=== PATIENT | male | born 1970 | race Caucasian/White ===

== ENCOUNTER 2020-12-05 10:38 | Emergency (ER) | payer BC, SELFPAY ==
--- NOTE | ~2020-12-05 | XR_ITS ---
EXAMINATION: XR KNEE, RIGHT CLINICAL INFORMATION: Right knee pain and swelling COMPARISON: None TECHNIQUE: Four views of the right knee. XR/XR knee RT 4V FINDINGS/IMPRESSION: No acute fracture or dislocation. Joint spaces and articular surfaces are maintained. Small marginal osteophytes along the patella. Moderate joint effusion.
--- NOTE | ~2020-12-05 | US_ITS ---
EXAMINATION: US VENOUS ULTRASOUND WITH DOPPLER LOWER EXTREMITY, RIGHT CLINICAL INFORMATION: Hernandez's cyst COMPARISON: None TECHNIQUE: Ultrasound of the deep veins is performed from the hip to the calf with compression sonography and color and pulse Doppler assessment. Spectral analysis with color-flow imaging is performed. FINDINGS: There is normal venous compression and respiratory variation and augmented flow. The visualized common femoral vein, superficial femoral vein, profunda femoral vein, popliteal vein, and the trifurcation region shows no evidence of deep venous thrombosis. There is no significant popliteal fossa cyst. Small joint effusion evident posteriorly within the popliteal fossa. US/US venous duplex LE RT IMPRESSION: No DVT demonstrated in the right lower extremity.
[2020-12-05 10:47] VITALS: BP 159/87; PULSE 53; RESP 16; TEMP 36.8; O2SAT 98; BMI 25.1
--- NOTE | 2020-12-05 12:44 | ED_ITS ---
HPI - Extremity Problem General Chief complaint: Extremity Problem Stated complaint: knee pain Time Seen by Provider: 12/05/20 11:58 Source: patient Mode of arrival: ambulatory Limitations: no limitations History of Present Illness HPI Narrative: Patient presents to ED for right posterior knee pain since yesterday. Patient states pain occurred after walking. Patient denies any blunt trauma to right lower extremity, falling to the ground, twisting of right lower extremity. Patient denies any sudden movements. 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 Patient denies any redness, hotness, or inability to bend/extend knee pain Related Data Previous Rx's Medication Instructions Recorded naproxen 500 mg PO BID PRN #20 tab 12/05/20 prednisone 40 mg PO DAILY #10 tab 12/05/20 Allergies Allergy/AdvReac Type Severity Reaction Status Date / Time No Known Allergies Allergy Verified 12/05/20 10:51 [No Known Allergies*] Review of Systems Review of Systems: Yes all other systems are reviewed and are negative Constitutional: Constitutional: Reports as per HPI and Reports no additional constitutional complaints Eyes: Eyes: Reports as per HPI and Reports no additional eye complaints ENT: Reports system reviewed and no additional complaints, except as documented and Reports as per HPI Cardiovascular: Cardiovascular: Reports as per HPI and Reports no additional cardiovascular complaints Respiratory: Respiratory: Reports as per HPI and Reports no additional respiratory complaints Gastrointestinal: Gastrointestinal: Reports as per HPI and Reports no additional gastrointestinal complaints Genitourinary: Genitourinary: Reports no additional male genitourinary complaints and Reports as per HPI Musculoskeletal: Musculoskeletal: Reports no additional musculoskeletal complaints, Reports as per HPI and Reports arthralgias (right posterior knee pain) Neurologic: Reports system reviewed and no additional complaints, except as documented and Reports as per HPI Psychiatric: Psychiatric: Reports no additional psychiatric complaints and Reports as per HPI [facility] Social History Social History Advance Directives: No Advance Directives Information Provided: No Physical Exam Vital Signs: Vital Signs: Last Vital Signs Temp 98.3 F 12/05/20 10:47 Pulse 53 12/05/20 10:47 Resp 16 12/05/20 10:47 BP 159/87 H 12/05/20 10:47 Pulse Ox 98 12/05/20 10:47 Body Mass Index 25.1 Const: General: cooperative, healthy appearing, comfortable, no acute distress, well developed, alert, awake and Physically active Orientatio n/consciousness: patient oriented x3 HENMT: Head: Yes normal to inspection, Yes No palpable skull fracture present, Yes normocephalic and Yes atraumatic Eyes: General: appearance normal, both eyes and all related structures Neck: Neck: Yes normal visual inspection, Yes full ROM, Yes no lymphadenopathy, Yes no meningeal signs, Yes trachea midline, Yes supple and No tender Chest: Chest palpation & inspection: normal inspection of the chest and normal palpation of entire chest wall Resp: Effort & Inspection: normal respiratory effort and able to speak in complete sentences Auscultation: clear to auscultation bilaterally Cardio: Jugular venous distension: no JVD Heart sounds: S1 normal heart sound present and S2 normal heart sound present GI: Inspection: Yes normal to inspection and No abdominal wall ecchymosis Palpation (GI): Soft to palpation, not firm, nontender, no guarding and not rigid : General: Yes CVA tenderness and Yes no CVA tenderness Back/Spine/Pelvis: Back: no CVA tenderness, CVA tenderness and No back tendern ess Skin: General skin exam: no rashes or lesions noted and elasticity normal Neuro: General: patient oriented x3, gait normal, no meningeal signs and CN's II-XI intact bilaterally Extrem: Other: Right lower extremity: Right knee negative for any swelling, redness, warmth, or inability to flex and extend. Positive for right posterior popliteal tenderness on palpation. Negative for any leg swelling, erythema, or calf tenderness. Negative for ecchymosis of right lower extremity. Vascular/motor/neuro exam of right lower extremity intact. Negative for any ecchymosis, deformity, bone tenderness to indicate fracture. All other extremities normal Psych: Appearance: grossly normal, well kempt and not disheveled Course Course Course Narrative: Patient sent for right knee x-ray and right lower extremity ultrasound. Differentials popliteal cyst. rule out DVT. History and physical exam does not indicate septic joint. Reevaluation(s) Reevaluation #1: X-ray negative for any fractures. X-ray shows osteoarthritis with joint effusion. Ultrasound of right lower extremity negative for any blood clots or Hernandez cyst. No indication for arthrocentesis. Not suspecting septic joint. Knee is not warm or red. Patient has complete range of motion of knee. Patient placed in Tian wrap and discharged with NSAIDs and steroids. Patient informed to follow-up with orthopedic. MDM - Extremity (Nontraumatic) MDM Narrative Medical decision making narrative: arthritis, knee effusion Discharge Plan Discharge Clinical Impression: Arthritis of knee, right, Joint effusion of knee Patient Disposition: Home, Self-Care Instructions: Swollen Knee Joint (ED), Arthritis (ED) Additional Instructions: Return to the ED immediately for redness, warmth of knee, inability to bend or flex knee, fever, chills, inability to walk, or any other concerning symptoms. Prescriptions: New naproxen 500 mg tablet 500 mg PO BID PRN (Reason: pain) Qty: 20 RF: 0 prednisone 20 mg tablet 40 mg PO DAILY Qty: 10 RF: 0 Referrals: Cody Pena MD [Primary Care Provider] - 2 days (Right knee arthritis/joint effusion.) tSan Lopez MD [Physician] - 2 days (Right knee arthritis/joint effusion.) Interventions: ED Discharge Assessment Last Done: 12/05/20 14:02 Discharge Date/Time: 12/05/20 14:03 Print Language: [place]
== END 2020-12-05 14:03 | disposition home or self-care (01) ==
PROVIDERS: Emergency Provider Emergency Medicine; PCP Internal Medicine
DX: M25.561 Pain in right knee (principal); M25.461 Effusion, right knee; M17.11 Unilateral primary osteoarthritis, right knee
CPT/HCPCS: 73564; 93971; 99283; 99284

== ENCOUNTER 2021-10-05 07:45 | Outpatient (REF) | payer BC, SELFPAY ==
--- NOTE | ~2021-10-05 | XR_ITS ---
EXAMINATION: XR KNEE AP KNEE STANDING, BILATERAL XR KNEE, LEFT CLINICAL INFORMATION: Pain left knee. COMPARISON: None TECHNIQUE: AP bilateral knee standing. Left knee 2 views. FINDINGS: AP BILATERAL KNEE: There is maintained medial and lateral compartment joint space without bony erosive changes. No loose bodies or soft tissue swelling. LEFT KNEE: There is mild reduction in the patellofemoral compartment joint space with an old separate lateral patellar fracture fragment or bipartite patella. There is no abnormal joint effusion. 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 Left patellar fracture is considered less likely. No joint effusion. Bilateral AP knee joints are unremarkable.
--- NOTE | ~2021-10-05 | XR_ITS ---
EXAMINATION: XR KNEE AP KNEE STANDING, BILATERAL XR KNEE, LEFT CLINICAL INFORMATION: Pain left knee. COMPARISON: None TECHNIQUE: AP bilateral knee standing. Left knee 2 views. FINDINGS: AP BILATERAL KNEE: There is maintained medial and lateral compartment joint space without bony erosive changes. No loose bodies or soft tissue swelling. LEFT KNEE: There is mild reduction in the patellofemoral compartment joint space with an old separate lateral patellar fracture fragment or bipartite patella. There is no abnormal joint effusion. 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 Left patellar fracture is considered less likely. No joint effusion. Bilateral AP knee joints are unremarkable.
== END 2021-10-05 07:46 | disposition home or self-care (01) ==
LOC: HO.HOSX 07:45
PROVIDERS: Visit Provider Physician Assistant
DX: M17.12 Unilateral primary osteoarthritis, left knee (principal)
CPT/HCPCS: 20610; 73560; 73565; J1040

== ENCOUNTER 2021-10-20 08:40 | Outpatient (REF) | payer BC, SELFPAY ==
--- NOTE | ~2021-10-20 | XR_ITS ---
EXAMINATION: XR KNEE, BILATERAL XR KNEE, RIGHT CLINICAL INFORMATION: Pain COMPARISON: 10/05/2021 TECHNIQUE: AP standing view of both knees. 2 views of the right knee. FINDINGS: Right knee: No fracture or subluxation. Compartmental joint spaces are maintained. Small marginal osteophytes of the patella noted. No joint effusion. The soft tissues are unremarkable. Periosteal reaction is smooth along the proximal fibula. Left knee: On this single view there is no acute fractures seen. Bipartite patella. XR/XR knee standing BI IMPRESSION: Mild degenerative change of the right knee patellofemoral compartment.
--- NOTE | ~2021-10-20 | XR_ITS ---
EXAMINATION: XR KNEE, BILATERAL XR KNEE, RIGHT CLINICAL INFORMATION: Pain COMPARISON: 10/05/2021 TECHNIQUE: AP standing view of both knees. 2 views of the right knee. FINDINGS: Right knee: No fracture or subluxation. Compartmental joint spaces are maintained. Small marginal osteophytes of the patella noted. No joint effusion. The soft tissues are unremarkable. Periosteal reaction is smooth along the proximal fibula. Left knee: On this single view there is no acute fractures seen. Bipartite patella. XR/XR knee RT 2V IMPRESSION: Mild degenerative change of the right knee patellofemoral compartment.
== END 2021-10-20 08:41 | disposition home or self-care (01) ==
LOC: HO.HOSX 08:40
PROVIDERS: Visit Provider Physician Assistant
DX: M25.561 Pain in right knee (principal)
CPT/HCPCS: 20610; 73560; 73565; J1040

== ENCOUNTER 2024-05-15 16:46 | Outpatient (REF) | payer BC, SELFPAY ==
[2024-05-15 16:56] LABS: MANUAL DIFF FLAG NO
[2024-05-15 17:12] LABS: Basophils Percent Auto 0.6 % (0-2); Eosinophils Absolute Auto 0.1 X10*3/uL (0.0-0.4); Eosinophils Percent Auto 0.8 % (0-4); Hematocrit 49.8 % (42.0-52.0); Hemoglobin 17.8 g/dl (14.0-18.0); Imm Gran Abs Auto 0.03 X10*3/uL (0.00-0.03); Imm Gran Pct Auto 0.5 % (0.0-0.4); Lymphocytes Absolute Auto 1.5 X10*3/uL (1.2-4.9); Lymphocytes Percent Auto 24.1 % (20-40); Mean Corpuscular HGB Conc 35.7 g/dl (31.0-36.0); Mean Corpuscular Volume 89.6 fL (80.0-98.0); Mean Platelet Volume 9.6 fL (9.4-12.4); Monocytes Absolute Auto 0.7 X10*3/uL (0.1-1.2); Monocytes Percent Auto 10.3 % (2-11); Neutrophils Percent Auto 63.7 % (45-73); Platelet Count 263 X10*3/uL (160-400); Red Blood Count 5.56 X10*6/uL (4.60-5.80); Red Cell Distribution Width 11.7 % (11.0-16.0); White Blood Count 6.3 X10*3/uL (4.8-10.8)
[2024-05-15 17:48] LABS: Alanine Aminotransferase 38 U/L (0-40); Albumin Level 4.4 g/dL (3.5-5.0); Alkaline Phosphatase 85 U/L (39-117); Anion Gap 15 (12-20); Aspartate Amino Transferase 32 U/L (5-37); Bilirubin Total 1.7 mg/dL (0.0-1.0); Blood Urea Nitrogen 12 mg/dL (9-16); C Reactive Protein < 0.10 mg/dL (< or = 0.50); Calcium 9.8 mg/dL (8.4-10.2); Carbon Dioxide 26 mmol/L (22-29); Chloride 103 mmol/L (96-108); Cholesterol 224 mg/dL (<200); Estimated Glomerular Filt Rate > 60; Glucose Random 93 mg/dL (60-115); HDL Cholesterol 43 mg/dL (>40); LDL Cholesterol Calculated 153 mg/dL (<100); Potassium 4.2 mmol/L (3.3-5.1); Sodium 140 mmol/L (135-145); Total Protein 7.5 g/dL (6.5-8.0); Triglycerides 141 mg/dL (<150)
[2024-05-15 18:08] LABS: Prostate Specific Antigen 6.66 ng/mL (<0.05-4.0)
== END 2024-05-15 16:47 | disposition home or self-care (01) ==
LOC: HO.LAB 16:46
PROVIDERS: PCP Internal Medicine; Visit Provider Internal Medicine
DX: Z87.19 Personal history of other diseases of the digestive system (principal); I45.10 Unspecified right bundle-branch block; Z12.5 Encounter for screening for malignant neoplasm of prostate
CPT/HCPCS: 36415; 80053; 80061; 82550; 84153; 85025; 86140

== ENCOUNTER 2024-09-30 13:44 | Outpatient (REF) | payer BC, SELFPAY ==
[2024-09-30 15:36] LABS: Mean Corpuscular HGB Conc 36.4 g/dl (31.0-36.0); Mean Corpuscular Hemoglobin 31.7 pg (27.0-33.0); Mean Corpuscular Volume 87.3 fL (80.0-98.0); Mean Platelet Volume 10.1 fL (9.4-12.4); Platelet Count 233 X10*3/uL (160-400); Red Blood Count 5.04 X10*6/uL (4.60-5.80); Red Cell Distribution Width 11.6 % (11.0-16.0); White Blood Count 4.8 X10*3/uL (4.8-10.8)
[2024-09-30 15:45] LABS: Prothrombin Time 11.6 SEC (10.9-12.4)
--- OUTSIDE RECORDS SUMMARY | 2024-09-30 15:46 | XMS_ITS | Continuity of Care Document ---
Author Organization [facility] Address [address] [place] [address] Phone Care Team Providers Care Mechanical Unit Repairer Name Role Phone Baljinder BANKS, Herbert Unavailable Unavailable Procedures Procedure Date [facility] Percutaneous Placement Intracoronary Prince nt TTE W/DOPPLER, COMP EMERGENCY DEPT VISIT OFFICE CONSULTATION TTE W/DOPPLER, COMP Advance Directives Directive Yes / No Effective Date File Name No Information Encounters Encounter Description Practice Location Reason(s) For Visit Diagnoses Date Provider Providers Copied on Encounter [facility], [address] , [place], [place], [facility], tel:[phone] [facility] No Information 9 Baljinder Godinez . [address] [place] [address], [id number], . tel:[phone] [place] [address] [address] [place], [place], [facility], tel:[phone] [facility] IP No Information 9 Adalid Portillo. [address] [place] [address], [id number], . tel:[phone] [address] [address] [address] [address] , [place], [place], [facility], tel:[phone] [facility] IP No Information 9 Eliel Esteves. [address] [place] [address], [id number], . tel:[phone] EMERGENCY DEPT VISIT [facility], [address] [place], [place], [facility], tel:[phone] [facility] ER No Information 7 Deepak Jain. [address] [place], [place], [facility], . tel:[phone] OFFICE CONSULTATION [facility], [address], [place], [place], [facility], tel:[phone] [facility] OP No Information 7 Eliel Esteves. [address] [place] [address], [id number], . tel:[phone] [facility], [address] , [place], [place], [facility], tel:[phone] [facility] OBS No Information 7 Amrit Alvarez. [address] [place] [address], [id number], . tel:[phone] Family History Family Member Type Diagnosis Age At Onset No Information Payers Payer name Insurance type Covered democrat ID Authorjolenea katerine(s) [facility] [id number] Social History Type Description Quantity Date Captured [...]
--- OUTSIDE RECORDS SUMMARY | 2024-09-30 15:46 | XMS_ITS | Continuity of Care Document ---
Author Organization [employer] Address [address] [place] [address] Phone Care Team Providers Care Group Sales Coordinator Name Role Phone Levi Gale MD Unavailable [...] Copied on Encounter [facility], [address] [place] [address], [id number], tel:[phone] [facility] No Information 1 Baljinder Sims. [address] [place] [address], [id number], . tel:[phone] [facility], [address] [place] [address], [id number], tel:[phone] [place] [facility] No Information 1 Son Cantrell. [address] [place], [id number], . tel:[phone] [facility], [address] [place] [address], [address] [place] [address], tel:[phone] [place] [facility] No Information 0 Moncho Schumacher. [address], [place], [facility], [place]. tel:[phone] [facility], [address] [place] [address], [address] [place] [address], tel:[phone] [place] [facility] No Information 0 Joel Rivera. [address] [place], [address] [place] [address], . tel:[phone] Referring Provider: Miguel Mayer, [address] [place], [address]. tel:[phone] [facility], [address] [place] [address], [address] [place] [address], tel:[phone] [place] [facility] No Information 0 Joel Rivera. [address] [place], [address] [place] [address], . tel:[phone] [facility], [address] [place] [address], [id number], tel:[phone] [place] [facility] PMC- ER (chief complaint)Ch est pain (chief complaint) AnemiaType 2 diabetes mellitus without complication sMixed hyperlipidem iaSleep apneaEssenti al (primary) hypertension Subsequent non-ST elevation (NSTEMI) myocardial infarctionAt hscl heart disease of habematolel coronary artery w/o ang pctrsSick sinus syndromeChro suzi diastolic (congestive) heart failureEnd stage renal diseaseChest painBody mass index (BMI) 40.0-44.9, adultPresenc e of cardiac pacemakerPre sence of coronary angioplasty implant and graftPersona l history of nicotine dependence 0 Son Cantrell. [address] [place], [place], [id number], . tel:[phone] Referring Provider: Miguel Mayer, [address] [place], [address]. tel:[phone] [facility], [address] [place] [id number], [place] tel:[phone] [place] [facility] PMC ER (chief complaint)Ch est pain (chief complaint)En d-stage renal disease (chief complaint)Ch ronic diastolic CHF (chief complaint)HT N/Hyperlipid emia (chief complaint)An emia (chief complaint) Type 2 diabetes mellitus without complication sMixed hyperlipidem iaEssential (primary) hypertension Subsequent non-ST elevation (NSTEMI) myocardial infarctionAt hscl heart disease of habematolel coronary artery w/o ang pctrsSick sinus syndromeChro suzi diastolic (congestive) heart failureBody mass index (BMI) 40.0-44.9, adultPresenc e of cardiac pacemakerAne miaChest painSleep apneaEnd stage renal diseasePrese nce of coronary angioplasty implant and graft 0 Joel Rivera. [address] [place], [id number], [place]. tel:[phone] [facility], [address] [place] [address], [id number], [place] tel:[phone] [place] [facility] No Information 0 Joel Rivera. [address] [place], [place], [id number], [place]. tel:[phone] [facility], [address] [place] [address], [id number], [place] tel:[phone] [facility] No Information 0 Joel Rivera. [address] [place], [id number], [place]. tel:[phone] Referring Provider: Thompson Bhatt, [address] [place], [address]. tel:[phone] OFFICE/OUTPAT IENT CONSULT [facility], [address] [place] [address], [id number], [place] tel:[phone] [facility] No Information 0 Joel Rivera. [address] [place], [id number], [place]. tel:[phone] Referring Provider: Thompson Bhatt, [address], [place], [address]. tel:[phone] Office/outpat ient visit, [facility], [facility] [place], [place], [id number], [place] tel:[phone] [place] [facility] Office visit (chief complaint)CA D (chief complaint)HT N (chief complaint)Di astolic CHF (chief complaint)Sl eep apnea (chief complaint) Essential (primary) hypertension Subsequent non-ST elevation (NSTEMI) myocardial infarctionAt hscl heart disease of habematolel coronary artery w/o ang pctrsSick sinus syndromeChro suzi diastolic (congestive) heart failureAnemi aSleep apneaMixed hyperlipidem iaChronic kidney diseaseType 2 diabetes mellitus without complication sBody mass index (BMI) 40.0-44.9, adultPresenc e of cardiac pacemakerPre sence of coronary angioplasty implant and graft 9 Joel Rivera. [address] [place], [place], [id number], [place]. tel:[phone] Referring Provider: Miguel Mayer, [address] [place], [address]. tel:[phone] [facility], [address] [place] [address], [id number], [place] tel:[phone] [place] [facility] No Information 9 Joel Rivera. [address] [place], [id number], [place]. tel:[phone] Referring Provider: Miguel Mayer, [address] [place], [address]. tel:[phone] Office/outpat ient visit, [facility], [address] [place], [place], [id number], [place] tel:[phone] [place] [facility] 3 month/[facility] (chief complaint) C (chief complaint) Essential (primary) hypertension Subsequent non-ST elevation (NSTEMI) [facility] heart disease of habematolel coronary artery w/o ang pctrsChronic diastolic (congestive) heart failureSick sinus syndromeAnem iaPresence of cardiac pacemakerPre sence of coronary angioplasty implant and graftSleep apneaType 2 diabetes mellitus without complication sHyperlipide miaChronic kidney diseasePerso nal history of nicotine dependenceBo dy mass index (BMI) 40.0-44.9, adult Aug- 9 Joel Rivera. [address] [place], [place], [id number], [place]. tel:[phone] Referring Provider: Miguel Mayer, [address] [place], [address]. tel:[phone] [facility], [address] [place] [address], [id number], [place] tel:[phone] [place] [facility] PMC (chief complaint)No n-Q wave GA/ CAD (chief complaint)Ch ronic diastolic CHF/ Anemia (chief complaint)Hy perlipidemia / Sleep apnea/ Insulin dependent (chief complaint)Si ck sinus syndrome/ Chronic kidney disease (chief complaint) Type 2 diabetes mellitus without complication sSleep apneaAnemiaE ssential (primary) hypertension Subsequent non-ST elevation (NSTEMI) [facility] infarctionAt [facility] heart disease of habematolel coronary artery w/o ang pctrsSick sinus syndromeChro suzi diastolic (congestive) heart failureChron ic kidney diseasePrese nce of cardiac pacemakerPre sence of coronary angioplasty implant and graftCoronar y angioplasty status 9 Joel Rivera. [address] [place], [id number], [place]. tel:[phone] [facility], [address] [place] [address], [id number], [place] tel:[phone] [facility] No Information 9 Moncho Schumacher. [address], , [place], [address], [place]. tel:[phone] Referring Provider: Rosmery Jang [address], [place], [address]. tel:[phone] [facility], [facility] [place], [place], [id number], tel:[phone] [facility] No Information 8201 9 Son Cantrell. [address] [place], [place], [id number], [place]. tel:[phone] Referring Provider: [address], [place], [address]. tel:[phone] CRITICAL CARE, FIRST HOUR [facility], [address] [place] [address], [id number], [place] tel:[phone] [facility] No Information 201 9 Joel Miguel. [address] [place], [id number], [place]. tel:[phone] Referring Provider: Rosmer[address], [place], [address]. tel:[phone] INPATIENT CONSULTATION [facility], [facility] [place], [id number], [place] tel:[phone] [facility] No Information 2 9 Joel Rivera. [address] [place], [id number], [place]. tel:[phone] Referring Provider: Matty Spivey, [address], [place], [address]. tel:[phone] Office/outpat ient visit, est [facility], [facility] [place], [place], [id number], [place] tel:[phone] [place] [facility] CAD (chief complaint)Ch ronic diastolic CHF (chief complaint)HT N (chief complaint)NS SUNG (chief complaint)Si ck sinus syndrome (chief complaint)An emia (chief complaint) Type 2 diabetes mellitus without complication sEssential (primary) hypertension Subsequent non-ST elevation (NSTEMI) myocardial infarctionAt hscl heart disease of habematolel coronary artery w/o ang pctrsSick sinus syndromeChro suzi diastolic (congestive) heart failurePrese nce of cardiac pacemakerPre sence of coronary angioplasty implant and graftCoronar y angioplasty statusAnemia , unspecifiedS leep apneaChronic kidney disease 9 Joel Rivera. [address] [place], [place], [id number], [place]. tel:[phone] Referring Provider: Lyla Scott, [address] [place] [address], [place], [address]. tel:[phone] Office/outpat ient visit, est [facility], [facility] [place], [id number], [place] tel:[phone] [place] [facility] PMC ER (chief complaint)CA D/ Chronic diastolic CHF (chief complaint)Si ck sinus syndrome/ Renal insufficienc y (chief complaint)HT N/ Hyperlipidem ia (chief complaint)Sl eep apnea/ Gastrointest inal bleeding (chief complaint)Ca rdiovascular Review (chief complaint) Type 2 diabetes mellitus without complication sEssential (primary) hypertension Sleep apneaSubsequ ent non-ST elevation (NSTEMI) myocardial infarctionAt [facility] heart disease of habematolel coronary artery w/o ang pctrsSick sinus syndromeChro suzi diastolic (congestive) heart failureChron ic kidney diseaseChest painPresence of cardiac pacemakerPre sence of coronary angioplasty implant and graftCoronar y angioplasty statusAnemia 9 Joel Rivera. [address] [place], [id number], [place]. tel:[phone] Referring Provider: Thompson Mayer, [address], [place], [address]. tel:[phone] INPATIENT CONSULTATION [facility], [facility] [place], [id number], [place] tel:[phone] [facility] No Information 9 Joel Rivera. [address] [place], [id number], [place]. tel:[phone] Referring Provider: Jose Matute, [address] [place] [address] [address], [place], [address]. tel:[phone] Office/outpat ient visit, est [facility], [facility] [place], [place], [id number], [place] tel:[phone] [place] [facility] PMC ER (chief complaint)CA D/ Chronic diastolic CHF (chief complaint)Si ck sinus syndrome/ Chronic renal insufficienc y (chief complaint)HT N/ Hyperlipidem ia (chief complaint)Sl eep apnea (chief complaint)No n-insulin dependent (chief complaint) Type 2 diabetes mellitus without complication sEssential (primary) hypertension Subsequent non-ST elevation (NSTEMI) myocardial infarctionAt hscl heart disease of habematolel coronary artery w/o ang pctrsSick sinus syndromeChro suzi diastolic (congestive) heart failureChest painChronic kidney diseasePrese nce of cardiac pacemakerPre sence of coronary angioplasty implant and graftCoronar y angioplasty statusSleep apneaBody mass index (BMI) 38.0-38.9, adult Mar-0 9 Joel Rivera. [address] [place], [id number], [place]. tel:[phone] Referring Provider: Thompson Mayer, [address], [place], [address]. tel:[phone] [facility], [address] [place], [place], [id number], [place] tel:[phone] [facility] No Information 9 Joel Rivera. [address] [place], [id number], [place]. tel:[phone] Referring Provider: Addy Arora, [address] [place], [address]. tel:[phone] INPATIENT CONSULTATION [facility], [address] [place], [place], [id number], [place] tel:[phone] [facility] No Information 9 Son Cantrell. [address] [place], [place], [id number], . tel:[phone] Referring Provider: Addy Arora, [address] [place], [address]. tel:[phone] OFFICE/OUTPAT IENT VISIT, EST [facility], [address] [place], [place], [id number], [place] tel:[phone] [place] [facility] (chief complaint) Hyperlipidem iaSleep apneaEssenti al (primary) hypertension Chronic diastolic (congestive) heart failurePrese nce of cardiac pacemakerCor onary angioplasty statusAthscl heart disease of habematolel coronary artery w/o ang pctrsSick sinus syndromeChes t painAnemiaTy pe 2 diabetes mellitus without complication sSubsequent non-ST elevation (NSTEMI) myocardial infarctionBo dy mass index (BMI) 38.0-38.9, adultPresenc e of coronary angioplasty implantAngin aChronic renal insufficienc y Joel Rivera. [address], [place], [id number], [place]. tel:[phone] Referring Provider: Thompson Mayer, [address], [place], [address]. tel:[phone] [facility], [facility] [place], [place], [id number], [place] tel:[phone] [facility] No Information 9 Joel Rivera. [address] [place], [address], [place]. tel:[phone] Referring Provider: Norman Da Silva, [address], [place], [address]. tel:[phone] INPATIENT CONSULTATION [facility], [facility] [place], [id number], [place] tel:[phone] [facility] No Information 9 Son Cantrell. [address] [place], [id number], [place]. tel:[phone] Referring Provider: Norman Da Silva, [address], [place], [address]. tel:[phone] Office/outpat ient visit, [facility], [address] [place] [address], [id number], tel:[phone] [place] [facility] PMC (chief complaint)HT N/ Diastolic CHF (chief complaint)Hy perlipidemia / Sleep apnea (chief complaint)CA D/ Sick sinus syndrome (chief complaint)Ca rdiac pacemaker/ Coronary angioplasty status (chief complaint) Essential (primary) hypertension Athscl heart disease of habematolel coronary artery w/o ang pctrsSick sinus syndromePres ence of cardiac pacemakerCor onary angioplasty statusDisord er of kidneyHyperl ipidemiaSlee p apneaBody mass index (BMI) 40.0-44.9, adultSubsequ ent non-Q wave acute MIChronic diastolic (congestive) heart failureChron ic kidney disease 9 Joel Rivera. [address] [place], [id number], [place]. tel:[phone] Referring Provider: Thompson Mayer, [address], [place], [address]. tel:[phone] [facility], [address] [place] [address], [id number], [place] tel:[phone] [facility] No Information 9 Joel Rivera. [address] [place], [id number], [place]. tel:[phone] Referring Provider: Óscar Mayer, [address] [place], [address]. tel:[phone] INITIAL [facility], [address] [place] [address], [id number], [place] tel:[phone] [facility] No Information 9 Son Cantrell. [address] [place], [place], [id number], [place]. tel:[phone] Referring Provider: Óscar Mayer, [address] [place], [address]. tel:[phone] INPATIENT CONSULTATION [facility], [facility] [place], [id number], [place] tel:[phone] [facility] No Information 9 Son Cantrell. [address], [id number], [place]. tel:[phone] Referring Provider: Jani Ray, [address] [facility], [place], [address]. tel:[phone] Office/outpat ient visit, est [facility], [address] [place] [address], [id number], tel:[phone] [place] [facility] (chief complaint)Ch est pain (chief complaint)Ca rdiovascular Review (chief complaint) Hyperlipidem iaSleep apneaEssenti al (primary) hypertension Athscl heart disease of habematolel coronary artery w/o ang pctrsSick sinus syndromeDias tolic CHFPresence of cardiac pacemakerCor onary angioplasty status 8 Son Cantrell. [address] [place], [id number], [place]. tel:[phone] Referring Provider: Óscar Mayer, [address] [place], [address]. tel:[phone] INPATIENT CONSULTATION [facility], [address] [place] [address], [id number], [place] tel:[phone] [facility] No Information 8 Son Cantrell. [address] [place], [id number], [place]. tel:[phone] Referring Provider: Buddy Millan, [address] [facility] [address], [place], [address]. tel:[phone] [facility], [facility] [place], [place], [id number], tel:[phone] [place] [facility] PMC (chief complaint)CH F (chief complaint)HT N (chief complaint)CA D (chief complaint)Re nal insufficienc y (chief complaint)Hy perlipidemia (chief complaint) Hyperlipidem iaEssential (primary) hypertension Athscl heart disease of habematolel coronary artery w/o ang pctrsSick sinus syndromePres ence of cardiac pacemakerSle ep apneaCoronar y angioplasty statusDiasto lic CHFRenal insufficienc y 8 Joel Rivera. [address] [place], [place], [id number], [place]. tel:[phone] Referring Provider: Thompson Mayer, [address], [place], [address]. tel:[phone] [facility], [address] [place] [address], [id number], tel:[phone] [facility] No Information Sep-2 8 Son Cantrell. [address], [address], [place]. tel:[phone] Referring Provider: Maria Luisa Montano, [address] [place] [address], [address]. tel:[phone] [facility], [address] [place] [address], [id number], [place] tel:[phone] [facility] No Information Sep-2 8 Son Cantrell. [address] [place], [id number], [place]. tel:[phone] Referring Provider: Óscar Mayer, [address] [place], [address]. tel:[phone] [facility], [address] [place] [address], [id number], [place] tel:[phone] [facility] [place] [facility] No Information Sep-1 8 Joel Rivera. [address] [place], [place], [id number], . tel:[phone] Referring Provider: Miguel Mayer, [address] [place], [address]. tel:[phone] INPATIENT CONSULTATION [facility], [facility] [place], [id number], [place] tel:[phone] [facility] No Information Joel Rivera. [address] [place], [id number], [place]. tel:[phone] Referring Provider: Maria Luisa Montano, [address] [place] [address], [address]. tel:[phone] [facility], [address] [place] [address], [id number], [place] tel:[phone] [place] [facility] CAD (chief complaint)HT N (chief complaint)Hy perlipidemia (chief complaint)Si ck Sinus Syndrome (chief complaint)Ch ronic renal insufficienc y (chief complaint)Ch est Pain (chief complaint) Essential (primary) hypertension Athscl heart disease of habematolel coronary artery w/o ang pctrsSick sinus syndromeHype rlipidemiaSl eep apneaDisorde r of kidneyInflam matory liver diseaseOther specified diabetes mellitus with diabetic amyotrophyCo ronary angioplasty statusPresen ce of cardiac pacemaker Joel Rivera. [address] [place], [id number], . tel:[phone] Referring Provider: Miguel Mayer, [address] [place], [address]. tel:[phone] [facility], [address] [place] [address], [id number], [place] tel:[phone] [facility] No Information Joel Rivera. [address] [place], [id number], . tel:[phone] Referring Provider: Miguel Mayer, [address] [place], [address]. tel:[phone] Office/outpat ient visit, est [facility], [address] [place] [address], [id number], [place] tel:[phone] [place] [facility] PMC (chief complaint)Ch est Pain (chief complaint)HT N (chief complaint)Re nal insufficienc y (chief complaint)Si ck sinus syndrome (chief complaint)CA D (chief complaint) Sick sinus syndromeChes t painRenal insufficienc yAthscl heart disease of habematolel coronary artery w/o ang pctrsHyperte nsionSleep apneaPresenc e of cardiac pacemakerCor onary angioplasty statusHyperl ipidemiaBody mass index (BMI) 40.0-44.9, adult 8 Joel Rivera. [address] [place], [id number], [place]. tel:[phone] Referring Provider: Miguel Mayer, [address] [facility] [place], [address]. tel:[phone] [facility], [facility] [place], [place], [id number], [place] tel:[phone] [facility] [place] [facility] Sick sinus syndromeOthe r specified diabetes mellitus with diabetic amyotrophyHe patitisHepat itis C 8 Son Cantrell. [address], [address], [place]. tel:[phone] INPATIENT CONSULTATION [facility], [address] [place], [place], [id number], [place] tel:[phone] [facility] No Information 8 Joel Rivera. [address] [place], [id number], [place]. tel:[phone] Referring Provider: Óscar Edmond, [address] [place], [address]. tel:[phone] OFFICE/OUTPAT IENT CONSULT [facility], [address] [place], [place], [id number], [place] tel:[phone] [facility] No Information 8 Joel Rivera. [address], [id number], [place]. tel:[phone] Referring Provider: Adarsh Hernandez MD, [address] [place] [address], [place], [address]. tel:[phone] [facility], [address] [place] [address], [id number], [place] tel:[phone] [facility] No Information 8 Son Cantrell. [address] [place], [id number], [place]. tel:[phone] Referring Provider: Miguel Mayer, [address] [place], [address]. tel:[phone] [facility], [address] [place] [address], [id number], [place] tel:[phone] [facility] No Information 8 Joel Rivera. [address] [place], [place], [id number], [place]. tel:[phone] Referring Provider: Vijaya Da Silva, [address], [place], [address]. tel:[phone] [facility], [address] [place] [address], [id number], [place] tel:[phone] [facility] No Information Joel Rivera. [address] [place], [place], [id number], [place]. tel:[phone] Referring Provider: Dixie Mcnamara, [address] [place], [address]. tel:[phone] OFFICE/OUTPAT IENT VISIT, NINOSKA [facility], [address] [place] [address], [id number], [place] tel:[phone] [facility] No Information 8 Joel Rivera. [address], [place], [place], [id number], . tel:[phone] Referring Provider: Adarsh Hernandez MD, [address] [place] [address], [id number]. tel:[phone] Family History Family Member Type Diagnosis Age At Onset Problem (finding) Family history of coronary arteriosclerosis Problem (finding) Myocardial infarction Payers Payer name Insurance type Covered constitution party ID Authoriza katerine(s) [facility] [id number] Social History Type Description Quantity Date [...] for hospital follow-up regarding chest discomfort. Primary photogrammetrist is Miguel Maldonado. Brilinta was discontinued in October 2018 due to multiple admissions for gastrointestinal bleeding requiring blood transfusions. Patient reports..Social Hx:Family Hx:Cardiac Medications:ECG: PMC ER Chest pain End-stage renal disease Chronic diastolic CHF HTN/Hyperlipidemia Anemia Office visit CAD HTN Diastolic CHF Sleep apnea 3 month/PMC/Post Hospital [facility] PMC Non-Q wave GA/ CAD Chronic diastolic CHF/ Anemia Hyperlipidemia/ Slee p apnea/ Insulin dependent Sick sinus syndrome/ Chronic kidney disease CAD Chronic diastolic CHF HTN NSTEMI Sick sinus syndrome Anemia CAD/ Chronic diastolic CHF Cardiovascular Review He [...] no symptoms attributable to valvular heart disease. [facility] ER Patient presents for Post-Hospital for GI bleed (Hgd 8.6 s/p transfusion), primary Consulting Psychologist is Dr. Maldonado last seen on 10/15/2018. Pt with medical history of CAD- multi vessel disease with multi prior stents mot recently 08/23/2018 acute non-Q-wave GA s/p stenting distal RCA, balloon angioplasty mid RCA (Dr. Cordoba) with subsequent stenting prox LCX and 2ndOM on 09/20/2018. Pt also with Chronic diastolic CHF, HTN, CKD stage IV- followed up nephrology baseline Cr 3.6, HLD, HANNAH- on CPAP, and DM.Of note-following recent GA 08.23.2018, pt hospitalization 09/16/2017 with acute CHF exacerbation and anemia requiring transfusion prior to repeat LHC with stenting. Again 10/01/2018 hospitalization at [facility] anemia with GI recurrent bleeding Hgb 6.9 s/p transfusion 2U PRBC with prior upper and lower EGD 09/25/2018 with colon polys in situ and diffuse erosive gastritis. 10/30 outpt transfusion. Most recent hospitalization on 11/03/2018 with anemia, GI bleed, requiring repeat transfusion 2 U PRBC and Brilinta being held, pt continue on aspirin 81mg daily alone.Echocardiogram as inpt at [facility] on 10/06/2018: mild concentric LVH, mildly reduced [...] Positive family hx of premature CAD or GA. Father- GA age 55.Social Hx: Tobacco Use: History smoking, quit 2017. Pt denies alcohol and illicit drug use. Sick sinus syndrome/ Renal insufficiency HTN/ Hyperlipidemia Sleep apnea/ Gastroi ntestinal bleeding CAD/ Chronic diastolic CHF Sick sinus syndrome/ Chronic renal insufficiency HTN/ Hyperlipidemia Sleep apnea Non-insulin dependent [facility] ER Patient presents for PH scheduled follow up at [facility] 10/06/2018, primary Consulting Psychologist is Dr. Maldonado last seen on 10/01/2018. Pt with medical history of CAD- multi vessel disease with multi prior stents mot recently s/p stenting distal RCA, balloon angioplasty mid RCA 08/2018, then prox LCX and 2nd PM 09/2018. Pt also with Chronic diastolic CHF, HTN, CKD stage IV- followed up nephrology, HLD, HANNAH- on CPAP, and DM. Post Hospital/[facility] HTN/ Diastolic CHF Hyperlipidemia/ Sleep apnea CAD/ Sick sinus syndrome Cardiac pacemaker/ C oronary angioplasty status Post Hospital/[facility] Pt present tod for PH [facility] on 06/25/2018 for HTN urgency with chest [...] inferior leads- UNCHANGED from previous. Chest pain Cardiovascular Review He has had no chest discomfort suggestive of ischemia. The patient denies orthopnea, PND, TYSON, or edema. Mr. Kumari has not had palpitations, syncope or near syncope. He denies claudication. There is no discoloration or ulceration of the lower extremities. He has had no TIA or stroke-like symptoms. The patient has no symptoms attributable to valvular heart disease. Renal insufficiency Hyperlipidemia PMC CHF HTN CAD CAD HTN Hyperlipidemia Sick Sinus Syndrome Chronic renal insufficiency Chest Pain CAD PMC Chest Pain HTN Renal insufficiency Sick sinus syndrome Functional Status Date Functional Assessmen t No Information Instructions Date Instruction Additional Infor henrique Giving encouragement to exercise Related to Body mass index (BMI) 40.0-44.9, adult Lifestyle education regarding di et Related to Body mass index (BMI) 40.0-44.9, adult Hypertension education Related t o Essential [...]
--- OUTSIDE RECORDS SUMMARY | 2024-09-30 15:46 | XMS_ITS | Continuity of Care Document ---
Author Organization [facility] Address [address] [place] [address] Phone Care Team Providers Care Participant Administrator Name Role Phone Wellington Yo MD Unavailable [...] Providers Copied on Encounter OFFICE CONSULTATION (ESTABLISHED) [facility], [address], [id number] , tel:[phone] [place] allergy symptoms (chief complaint) Adverse effect of drug/meds/biol subst, subsAtopic dermatitis, unspecifiedChronic rhinitisShortness of breath 7 Srinath Lemus [address] [facility] [place], [place], [id number] , . tel:[phone] Referring Provider: Hilda Zhang si, [address], [address] [facility] [place], [address]. tel:[phone] Family History Family Member Type Diagnosis Age At Onset No Information Immunizations Vaccine Date Status Comments Influenza 3 years or older administered S ource: Other Provider Payers Payer name Insurance type Covered republican ID Paul garcias(s) [employer] [facility]. [id number] Social History Type Description Quantity Date Captured [...] on Plavix and could not speak in Slovenian but could communicate in other languages. He is still on ASA, increased to 325mg from 81mg. Stopped long-acting insulin but continues on Novolog. On anti-GERD medication. Saw astronomy department chair 2 weeks ago and was placed on [...] Mental Status Date Cognitive Assessment Orientation - [place] ed to time, place, person, situation. Patient Care Teams Name Effective Dates (start - stop) Status Members No Information
[2024-09-30 16:05] LABS: Anion Gap 11 (12-20); Calcium 8.8 mg/dL (8.4-10.2); Carbon Dioxide 26 mmol/L (22-29); Chloride 107 mmol/L (96-108); Estimated Glomerular Filt Rate > 60; Glucose Random 92 mg/dL (60-115); Potassium 4.1 mmol/L (3.3-5.1); Sodium 140 mmol/L (135-145)
[2024-09-30 16:29] LABS: Blood Urea Nitrogen 14 mg/dL (9-16)
== END 2024-09-30 13:45 | disposition home or self-care (01) ==
LOC: HO.LAB 13:44
PROVIDERS: PCP Internal Medicine; Visit Provider Internal Medicine Cardiovascular Disease
DX: I20.0 Unstable angina (principal)
CPT/HCPCS: 36415; 80048; 85027; 85610; 93005

== ENCOUNTER 2024-09-30 13:44 | Outpatient (AMB) | payer BC, SELFPAY ==
[2024-09-30 13:45] VITALS: BP 120/78; PULSE 57; BMI 26.6
--- NOTE | 2024-09-30 13:45 | MHC.OFFVIS ---
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 He is a pleasant 54-year-old male with prior history of hyperlipidemia, nonobstructive coronary disease with 40-50% LAD/circumflex disease in 2011 by cardiac catheterization which has done for chest pain was diagnose at that time with pericarditis. No treatment since then. He has been leading a healthy lifestyle with currently not on any medications. Last winter in his running event he noted some exertional chest burning discomfort. After that he was symptoms dissipated because he was not running. Till he recently started picking up running again very started noticing 1/2 mi into his run he would start feeling this exertional chest burning in the center of the chest which she thought might be related to acid reflux disease. He would then cut down his running of slow down and start walking in the symptoms have dissipate and then he could start running again. He said with routine day-to-day walking around he does not get his symptoms. He also cleared snow the other day without any significant symptoms. His last LDL is 155 mg/dL. He was family history of both his father and mother having coronary as well as cerebrovascular disease in the 60s. He denies any symptoms at rest. Denies any heart failure symptoms. Denies any prolonged palpitation. [facility] Family History Father CVA (cerebral vascular accident) CAD (coronary artery disease) Mother CAD (coronary artery disease) Social History Patient Tobacco Use Status: Never used Tobacco Review of Systems Const Denies chills, Denies daytime sleepiness, Denies fatigue, Denies fever(s), Denies frequent falls, Denies poor appetite, Denies snoring, Denies stops breathing during sleep, Denies weakness, Denies weight gain and Denies weight loss Eyes Denies loss of vision ENT Denies dizziness and Denies hearing loss Card Reports chest pain, Denies claudication, Denies leg edema, Denies lightheadedness, Denies palpitations, Denies dyspnea, Denies dyspnea on exertion and Denies orthopnea Resp Denies cough, Denies excessive phlegm production, Denies dyspnea, Denies dyspnea on exertion, Denies snoring and Denies wheezing GI Denies abdominal pain, Denies hematochezia, Denies change in bowel habits, Reports heartburn, Denies nausea and Denies vomiting Denies dysuria and Denies urinary frequency Musc Denies arthralgias, Denies muscle weakness, Denies numbness and Denies other (frequent falls) Skin/Breast Denies nail changes and Denies rash Neuro Denies Abnormal speech present, Denies dizziness, Denies frequent falls, Denies loss of vision, Denies memory loss, Denies numbness and Denies weakness Psych Denies depression and Denies memory loss Endo Denies fatigue and Denies palpitations Chaitanya/Lymph Reports easy bruising and Reports other (anemia) Aller/Immun Denies wheezing Physical Exam Vital Signs: Last Vital Signs Pulse 57 09/30/24 13:45 BP 120/78 09/30/24 13:45 BMI result Body Mass Index 26.6 Const General: cooperative, comfortable, no acute distress, well developed, alert, awake and Physically active Nutritional Appearance: average body habitus and well nourished Orientation/consciousness: patient oriented x3 Limitations: no limitations HEENT Head: Yes normocephalic and Yes atraumatic Neck Neck: Yes trachea midline, Yes supple and Yes no JVD Carotids: no bruits Resp Effort & Inspection: normal respiratory effort Auscultation: clear to auscultation bilaterally Cardio Jugular venous distension: no JVD Palpation: normal PMI Rate: regular rate Rhythm: regular rhythm Heart sounds: S1 normal heart sound present, S2 normal heart sound present, no click, no gallops, no murmurs and no rubs Skin General skin exam: no rashes or lesions noted Neuro General: patient oriented x3 and no focal motor deficits Speech: No Abnormal speech present Extrem General: Yes no clubbing, cyanosis or edema Psych Appearance: grossly normal Office Procedures EKG Details: EKG shows sinus bradycardia 57 beats per minute right bundle and left anterior fascicular block without acute ST changes [id number], Complete Assessment & Plan Assessment & Plan (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 There is high likelihood of progressive coronary artery disease including multivessel coronary artery disease with recent symptoms most likely related to change in plaque morphology. I have therefore recommended him to avoid any strenuous activity including running at this point time or clearing snow. I would start him on medical therapy with aspirin, metoprolol as well as atorvastatin high-intensity. Pathophysiology of coronary artery disease were discussed in details. I think the best mode of further workup would be a cardiac catheterization in the near future. This would be to avoid running risk as likelihood of obstructive coronary artery disease high put him on a treadmill including possibly having significant triple-vessel disease with left main disease. This was discussed with him. He understands agrees. Risks, benefits, alternatives of cardiac catheterization was discussed. Lab work today. Will also obtain echocardiogram to evaluate for baseline LV systolic function at rest. Will follow up in the clinic after cardiac catheterization. Thank you for allowing me to partake in his care Orders: Orders Cardiac Cath LT w PCI 10 Days I20.0 - Unstable angina CA echo transthoracic complete Today I20.0 - Unstable angina Complete Blood Count no Diff Today I20.0 - Unstable angina Basic Metabolic Panel Today I20.0 - Unstable angina Prothrombin Time INR Today I20.0 - Unstable angina Medications: New aspirin (Ecotrin Low Strength) 81 mg PO DAILY 30 tabs 0RF I20.0 - Unstable angina metoprolol succinate ER (Toprol XL) 25 mg PO DAILY 30 tabs 5RF I20.0 - Unstable angina atorvastatin (Lipitor) 40 mg PO DAILY 30 tabs 5RF I20.0 - Unstable angina Coding Level of Care Code New Pt Level 4 (49572) Complex EM visit Add On G2211 Diagnoses Crescendo angina I20.0 CPT Codes EKG - CPT: 83876-[id number], Complete ([id number])
--- OUTSIDE RECORDS SUMMARY | 2024-09-30 14:43 | XMS_ITS | Continuity of Care Document ---
Author Organization [facility] Address [address] [place] [phone] Phone Care Team Providers Care Tree And Shrub Technician Name Role Phone Wellington Yo MD Unavailable Unavailable Allergies, Adverse Reactions, Alerts Substance Reaction Status Criticality metoprolol (severe) Active No Information carvedilol (severe) Active No Information SMITHA Inhibitors Active No Informatio n CLOPIDOGREL BISULFATE stroke like sx(severe) Active No Information Medications Medication Instructions Dosage Effective Dates (start - stop) Status Comments losartan 100 mg tablet take 1 tablet by oral route every day 100 MG - Active aspirin 325 mg tablet take 1 tablet by o ral route every day 325 MG - Active furosemide 40 mg tablet take 1 tablet by oral route 3 times every day 40 MG - Active metformin 500 mg tablet take 1 tablet by oral route every day with morning and evening meals 500 MG - Active Novolog 100 unit/mL subcutaneous solution take up to 50 units tree times a day - Active Procedures Procedure Date OFFICE CONSULTATION (ESTABLISHED) Advance Directives Directive Yes / No Effective Date File Name No Information Encounters Encounter Description Practice Location Reason(s) For Visit Diagnoses Date Provider Providers Copied on Encounter OFFICE CONSULTATION (ESTABLISHED) [facility], [address], [id number] , tel:[phone] [place] allergy symptoms (chief complaint) Adverse effect of drug/meds/biol subst, subsAtopic dermatitis, unspecifiedChronic rhinitisShortness of breath 7 Srinath Lemus [address] [facility] [place], [place], [id number] , . tel:[phone] Referring Provider: Hilda Zhang si, [id number], [address] [facility] [place], [address]. tel:[phone] Family History Family Member Type Diagnosis Age At Onset No Information Immunizations Vaccine Date Status Comments Influenza 3 years or older administered S ource: Other Provider Payers Payer name Insurance type Covered alliance party ID Paul garcias(s) [employer] .[facility]. [id number] Social History Type Description Quantity Date Captured Comments Alcohol Use Details Unknown Caffeine Use Details Unknown Tobacco Use Status Ex-cigarette smoker 017 Smoking Status Former smoker Smoking Tobacco Use Details Cigarette: Age Started: 8, Age Stopped: 46 Cigarette: 1 Packs per day Sex Male Vital Signs Date / Time: Height Weight BMI Pulse Rate Blood Pressure Temperature Respiratory Rate Body Surface Area Head Circumference Head Circ. Percentile Wt./[place]. Percentile BMI percentile Pulse Ox Inhaled Ox 3:35 PM 72.00 in 130.181 kg (287.00 lbs) 38.9 2 kg/m eter (2) 117 /min 180/120 mm[Hg] 98.70 F 16 /min 96 % Chief Complaint And Reason For Visit From encounter dated '10/24/2016 14:35'. allergy symptoms (chief complaint) Reason For Referral Reason For Referral No Information History Of Present Illness Encounter Date Complaint History Of Prese nt Illness allergy symptoms allergy symptoms (comments) Pt i s a 46 yo male who presents for evaluation of allergies. He had a couple of heart attacks in October. Kept going back to ED with chest pains, SOB, swelling in his extremities. Says he passed out on Jared Dina and was placed on Holter monitor. Saw long pauses on monitor and was told to stop Carvedilol. All of his symptoms improved. Was placed on a different beta ricki (metoprolol) and developed facial and neck swelling, hands and feet swelling, chest pain, involuntary muscle jerks, SOB. Was admitted for 2 days and was treated with steroids and inhalers, and antihistamines. No Epi requirement. He has stopped most of his heart medications and long acting diabetes medications. Says that after his stent placement he was on Plavix and could not speak in Z[place]ian but could communicate in other languages. He is still on ASA, increased to 325mg from 81mg. Stopped long-acting insulin but continues on Novolog. On anti-GERD medication. Saw service advocate contact 2 weeks ago and was placed on Relenta, which he has not started. Tolerating Losartan and furosemide without adverse reactions. Had swelling/cramps in his legs when increased Amolodine or when placed on statins. Denies rhinitis symptoms unless he is exposed to high levels of dust or grass. Will wear a mask on occasion but is not bothered enough to treat symptoms. Denies frequent sinus infections.No h/o food allergy, bee sting allergy.No h/o asthma. Has h/o 1+ ppd since childhood, quit in May. Denies frequent SOB or chest tightness since stopping his medications. Has never had to carry an inhaler. Decreased exercise tolerance secondary to weight gain and deconditioning. Gets dry skin rash that itches in bilateral antecubital fossae in the summer. Functional Status Date Functional Assessmen t No Information Instructions Date Instruction Additional Infor henrique --Obtain records from pulmonolog y. Related to Shortness of breath --Could consider ski n testing to assess for presence of allergy. Related to Chronic rhinitis --Discussed tips to reduce drying and irritation that can exacerbate eczema:--Increase emollients to at least 2 x per day (ex. aquaphor, vaseline, Eucerin, Cetaphil, Cerave, Vanicream, etc). --Keep nails trimmed short. --Keep temperature in home 68 degrees and below. Dress on the cooler side to prevent sweating. --Use luke-warm bath or shower water. It is ok to bathe daily. Use soak and seal method of patting dry after bath and immediately applying either vaseline or aquaphor to all skin. --Use soap (scent-free, dye-free) at very end of bath and only on the parts that need it (ie: diaper area/groin, hands, feet) --Prior to wearing new clothing, wash in scent-free, dye-free detergent to remove sizing; remove any itchy tags--Avoid scented products (such as perfume/cologne, air fresheners, glade plug-ins, detergents with scent, soaps with scent) and anything smoky. If you smoke, must be outside and avoid smoking in the car.--May use topical steroids as needed for flares. Related to Atopic dermatitis, unspecified --Obtain records fro m outside offices. Will then contact Dr. Chamorro if needed to determine medications needed for testing. Discussed limitations of testing. Related to Adverse effect of drug/meds/biol subst, subs Assessments Type Assessment Date assessment Adverse effect of drug/meds/biol subst, subs assessment Atopic dermatitis, unspecified M assessment Chronic rhinitis assessment Shortness of breath impression Pt has h/o adverse r eactions to several medications. Some sound like possible IgE-mediated hypersensitivity reactions, but most do not. Pt would like to know if he is allergic to beta blockers secondary to their cardioprotective effects. Cannot recall what other medications his PCP would like him tested to. impression Per pt he is not bothered encoug h by symptoms to treat. impression Per pt he recently had normal fu ll PFT. Mental Status Date Cognitive Assessment Orientation - Harrold ed to time, place, person, situation. Patient Care Teams Name Effective Dates (start - stop) Status Members No Information
--- OUTSIDE RECORDS SUMMARY | 2024-09-30 14:43 | XMS_ITS | Continuity of Care Document ---
Author Organization [facility] Address [address] [place] [address] Phone Care Team Providers Care Manager Customs Name Role Phone Levi Gale MD Unavailable Unavailable Allergies, Adverse Reactions, Alerts Substance Reaction Status Criticality ticagrelor Active No Information CLOPIDOGREL BISULFATE Active No Inf ormation Beta-Blockers (Beta-Adrenergic Blocking Agts) Active No Information AMLODIPINE BESYLATE Swelling(severe) Active No I nformation SMITHA Inhibitors Active No Informatio n Medications Medication Instructions Dosage Effective Dates (start - stop) Status Comments clonidine HCl 0.3 mg tablet take 1 tablet by oral route 3 times every day 0.3 MG - Active Patient needs an appointment for more refills metoprolol tartrate 100 mg tablet take 1 tablet by oral route 2 times every day with meals 100 MG - Active amlodipine 5 mg tablet take 1 tablet by oral route every day 5 MG - Active hydralazine 100 mg tablet take 1 tablet by oral route 3 times every day with food 100 MG - Active doxazosin 2 mg tablet take 1 tablet by oral route every day 2 MG - Active torsemide 100 mg tablet take 1 tablet by oral route every day 100 MG - Active calcium acetate 667 mg capsule take 2 capsule by oral route 3 times every day with meals 1334 MG - Active Levemir FlexTouch U-100 Insulin 100 unit/mL (3 mL) subcutaneous pen inject 60 units bid by subcutaneous route per prescriber's instructions. Insulin dosing requires individualization. - Active Vitamin D3 5,000 unit tablet take 1 Unit by Oral route every day 1 Unit - Active famotidine 20 mg tablet take 1 Tablet by Oral route 2 times every day 1 Tablet - Active aspirin 81 mg tablet,delayed release take 1 tablet by oral route every day 81 MG - Active Novolog Flexpen U-100 Insulin aspart 100 unit/mL subcutaneous inject 50 units by subcutaneous route per prescriber's instructions. Insulin dosing requires individualization. - Active Procedures Procedure Date PM DEVICE PROGRAMMING EVAL, DUAL 2019 ELECTROCARDIOGRAM REPORT OFFICE/OUTPATIENT CONSULT Office/outpatient visit, est ELECTROCARDIOGRAM, COMPLETE PM DEVICE PROGRAMMING EVAL, DUAL 2018 Office/outpatient visit, est ELECTROCARDIOGRAM, COMPLETE SUBSEQUENT HOSPITAL CARE SUBSEQUENT HOSPITAL CARE CRITICAL CARE, FIRST HOUR CRITICAL CARE, ADD'L 30 MIN Coronary Angioplasty/PTCA Single Vessel LHC W/coronary & Lft Ventricular 2018 Echo CRITICAL CARE, FIRST HOUR SUBSEQUENT HOSPITAL CARE SUBSEQUENT HOSPITAL CARE INPATIENT CONSULTATION SUBSEQUENT HOSPITAL CARE Office/outpatient visit, est ELECTROCARDIOGRAM, COMPLETE Office/outpatient visit, est ELECTROCARDIOGRAM, COMPLETE INPATIENT CONSULTATION Office/outpatient visit, est ELECTROCARDIOGRAM, COMPLETE SUBSEQUENT HOSPITAL CARE INPATIENT CONSULTATION Echo OFFICE/OUTPATIENT VISIT, EST ELECTROCARDIOGRAM, COMPLETE SUBSEQUENT HOSPITAL CARE SUBSEQUENT HOSPITAL CARE SUBSEQUENT HOSPITAL CARE PTCA/Stent Intracoronary Single Vessel F LHC W/coronary & Lft Ventricular 2018 Mod Sedation Initial 15min Intraservice SUBSEQUENT HOSPITAL CARE SUBSEQUENT HOSPITAL CARE ELECTROCARDIOGRAM REPORT SUBSEQUENT HOSPITAL CARE SUBSEQUENT HOSPITAL CARE SUBSEQUENT HOSPITAL CARE SUBSEQUENT HOSPITAL CARE INPATIENT CONSULTATION Office/outpatient visit, est ELECTROCARDIOGRAM, COMPLETE SUBSEQUENT HOSPITAL CARE ELECTROCARDIOGRAM REPORT HOSPITAL DISCHARGE DAY INITIAL HOSPITAL CARE INPATIENT CONSULTATION ELECTROCARDIOGRAM REPORT SUBSEQUENT HOSPITAL CARE SUBSEQUENT HOSPITAL CARE Office/outpatient visit, est ELECTROCARDIOGRAM, COMPLETE INPATIENT CONSULTATION ELECTROCARDIOGRAM REPORT SUBSEQUENT HOSPITAL CARE SUBSEQUENT HOSPITAL CARE Echo PM DEVICE PROGRAMMING EVAL, DUAL 2017 INPATIENT CONSULTATION ELECTROCARDIOGRAM REPORT ELECTROCARDIOGRAM REPORT SUBSEQUENT HOSPITAL CARE PROLONGED SERVICE, INPATIENT SUBSEQUENT HOSPITAL CARE SUBSEQUENT HOSPITAL CARE Duplex Scan Of Arteries L/E Office/outpatient visit, est ELECTROCARDIOGRAM, COMPLETE INPATIENT CONSULTATION ELECTROCARDIOGRAM, COMPLETE SUBSEQUENT HOSPITAL CARE Echo OFFICE/OUTPATIENT CONSULT ELECTROCARDIOGRAM REPORT Echo INITIAL HOSPITAL CARE ELECTROCARDIOGRAM REPORT SUBSEQUENT HOSPITAL CARE ELECTROCARDIOGRAM REPORT Complete B/L Duplex Of Extremity Veins M OFFICE/OUTPATIENT VISIT, EST ELECTROCARDIOGRAM REPORT Observation Care Subsequent Advance Directives Directive Yes / No Effective Date File Name No Information Encounters Encounter Description Practice Location Reason(s) For Visit Diagnoses Date Provider Providers Copied on Encounter [facility], [address] [place] [address], [id number], tel:[phone] [facility] No Information 1 Baljinder Sims. [address] [place] [address], [id number], . tel:[phone] [facility], [address] [place] [address], [id number], tel:[phone] [facility] No Information 1 Son Cantrell. [address] [place], [id number], . tel:[phone] [facility], [address] [place] [address], [address] [place] [address], tel:[phone] [facility] No Information 0 Moncho Schumacher. [address], [place], [place], [facility], [place]. tel:[phone] [facility], [address] [place] [address], [address] [place] [address], tel:[phone] [facility] No Information 0 Joel Rivera. [address] [place], [address] [place] [address], . tel:[phone] Referring Provider: Miguel Mayer, [address] [place], [address]. tel:[phone] [facility], [address] [place] [address], [address] [place] [address], tel:[phone] [facility] No Information 0 Joel Rivera. [address] [place], [address] [place] [address], . tel:[phone] [facility], [address] [place] [address], [id number], tel:[phone] [facility] PMC- ER (chief complaint)Ch est pain (chief complaint) AnemiaType 2 diabetes mellitus without complication sMixed hyperlipidem iaSleep apneaEssenti al (primary) hypertension Subsequent non-ST elevation (NSTEMI) myocardial infarctionAt hs[facility] heart disease of [place] coronary artery w/o ang pctrsSick sinus syndromeChro suzi diastolic (congestive) heart failureEnd stage renal diseaseChest painBody mass index (BMI) 40.0-44.9, adultPresenc e of cardiac pacemakerPre sence of coronary angioplasty implant and graftPersona l history of nicotine dependence 0 Sno Cantrell. [address] [place], [place], [id number], . tel:[phone] Referring Provider: Miguel Mayer, [address] [place], [address]. tel:[phone] [facility], [address] [place] [address], [id number], [place] tel:[phone] [facility] PMC ER (chief complaint)Ch est pain (chief complaint)En d-stage renal disease (chief complaint)Ch ronic diastolic CHF (chief complaint)HT N/Hyperlipid emia (chief complaint)An emia (chief complaint) Type 2 diabetes mellitus without complication sMixed hyperlipidem iaEssential (primary) hypertension Subsequent non-ST elevation (NSTEMI) myocardial infarctionAt [facility] heart disease of [place] coronary artery w/o ang pctrsSick sinus syndromeChro suzi diastolic (congestive) heart failureBody mass index (BMI) 40.0-44.9, adultPresenc e of cardiac pacemakerAne miaChest painSleep apneaEnd stage renal diseasePrese nce of coronary angioplasty implant and graft 0 Joel Rivera. [address] [place], [id number], [place]. tel:[phone] [facility], [address] [place] [address], [id number], [place] tel:[phone] [facility] No Information 0 Joel Rivera. [address] [place], [id number], [place]. tel:[phone] [facility], [address] [place] [address], [id number], [place] tel:[phone] [facility] No Information 0 Joel Rivera. [address] [place], [place], [id number], [place]. tel:[phone] Referring Provider: Thompson Bhatt, [address] [place], [address]. tel:[phone] OFFICE/OUTPAT IENT CONSULT [facility], [address] [place] [address], [id number], [place] tel:[phone] [facility] No Information 0 Joel Rivera. [address] [place], [id number], [place]. tel:[phone] Referring Provider: Thompson Bhatt, [address], [place], [address]. tel:[phone] Office/outpat ient visit, [facility], [facility], [place], [id number], [place] tel:[phone] [facility] Office visit (chief complaint)CA D (chief complaint)HT N (chief complaint)Di astolic CHF (chief complaint)Sl eep apnea (chief complaint) Essential (primary) hypertension Subsequent non-ST elevation (NSTEMI) myocardial infarctionAt hs[facility] heart disease of [place] coronary artery w/o ang pctrsSick sinus syndromeChro suzi diastolic (congestive) heart failureAnemi aSleep apneaMixed hyperlipidem iaChronic kidney diseaseType 2 diabetes mellitus without complication sBody mass index (BMI) 40.0-44.9, adultPresenc e of cardiac pacemakerPre sence of coronary angioplasty implant and graft 9 Joel Rivera. [address] [place], [place], [id number], [place]. tel:[phone] Referring Provider: Miguel Mayer, [address] [place], [address]. tel:[phone] [facility], [address] [place] [address], [id number], [place] tel:[phone] [facility] No Information 9 Joel Rivera. [address] [place], [id number], [place]. tel:[phone] Referring Provider: Miguel Mayer, [address] [place], [address]. tel:[phone] Office/outpat ient visit, [facility], [address], [place], [id number], [place] tel:[phone] [facility] 3 month/PMC/Po [facility]3] (chief complaint) C (chief complaint) Essential (primary) hypertension Subsequent non-ST elevation (NSTEMI) myocardial infarctionAt [facility] heart disease of [place] coronary artery w/o ang pctrsChronic diastolic (congestive) heart failureSick sinus syndromeAnem iaPresence of cardiac pacemakerPre sence of coronary angioplasty implant and graftSleep apneaType 2 diabetes mellitus without complication sHyperlipide miaChronic kidney diseasePerso nal history of nicotine dependenceBo dy mass index (BMI) 40.0-44.9, adult Aug- 9 Joel Rivera. [address] [place], [place], [id number], [place]. tel:[phone] Referring Provider: Miguel Mayer, [address] [place], [address]. tel:[phone] [facility], [address] [place] [address], [id number], [place] tel:[phone] [facility] PMC (chief complaint)No n-Q wave IN/ CAD (chief complaint)Ch ronic diastolic CHF/ Anemia (chief complaint)Hy perlipidemia / Sleep apnea/ Insulin dependent (chief complaint)Si ck sinus syndrome/ Chronic kidney disease (chief complaint) Type 2 diabetes mellitus without complication sSleep apneaAnemiaE ssential (primary) hypertension Subsequent non-ST elevation (NSTEMI) myocardial infarctionAt [facility] heart disease of [place] coronary artery w/o ang pctrsSick sinus syndromeChro suzi diastolic (congestive) heart failureChron ic kidney diseasePrese nce of cardiac pacemakerPre sence of coronary angioplasty implant and graftCoronar y angioplasty status 9 Joel Rivera. [address] [place], [id number], [place]. tel:[phone] SUBSEQUENT HOSPITAL CARE [facility], [address] [place] [address], [id number], [place] tel:[phone] [facility] No Information 9 Moncho Schumacher. [address], , [place], [address], [place]. tel:[phone] Referring Provider: Rosmery Jang [address], [place], [address]. tel:[phone] SUBSEQUENT HOSPITAL CARE [facility], [facility] [place], [place], [id number], tel:[phone] [facility] No Information 8201 9 Son Cantrell. [address] [place], [id number], [place]. tel:[phone] Referring Provider: [address], [place], [address]. tel:[phone] CRITICAL CARE, FIRST HOUR [facility], [address] [place] [address], [id number], [place] tel:[phone] [facility] No Information 201 9 Joel Miguel. [address] [place], [id number], [place]. tel:[phone] Referring Provider: Rosmer[address], [place], [address]. tel:[phone] INPATIENT CONSULTATION [facility], [facility] [place], [id number], [place] tel:[phone] [facility] No Information 2 9 Joel Rivera. [address] [place], [id number], [place]. tel:[phone] Referring Provider: Matty Spivey, [address], [place], [address]. tel:[phone] Office/outpat ient visit, est [facility], [facility] [place], [place], [id number], [place] tel:[phone] [facility] CAD (chief complaint)Ch ronic diastolic CHF (chief complaint)HT N (chief complaint)NS SUNG (chief complaint)Si ck sinus syndrome (chief complaint)An emia (chief complaint) Type 2 diabetes mellitus without complication sEssential (primary) hypertension Subsequent non-ST elevation (NSTEMI) myocardial infarctionAt [facility] heart disease of [place] coronary artery w/o ang pctrsSick sinus syndromeChro suzi diastolic (congestive) heart failurePrese nce of cardiac pacemakerPre sence of coronary angioplasty implant and graftCoronar y angioplasty statusAnemia , unspecifiedS leep apneaChronic kidney disease 9 Joel Rivera. [address] [place], [place], [id number], [place]. tel:[phone] Referring Provider: Lyla Scott, [address] [place] [address], [place], [address]. tel:[phone] Office/outpat ient visit, est [facility], [facility], [place], [id number], [place] tel:[phone] [facility] PMC ER (chief complaint)CA D/ Chronic diastolic CHF (chief complaint)Si ck sinus syndrome/ Renal insufficienc y (chief complaint)HT N/ Hyperlipidem ia (chief complaint)Sl eep apnea/ Gastrointest inal bleeding (chief complaint)Ca rdiovascular Review (chief complaint) Type 2 diabetes mellitus without complication sEssential (primary) hypertension Sleep apneaSubsequ ent non-ST elevation (NSTEMI) myocardial infarctionAt [facility] heart disease of [place] coronary artery w/o ang pctrsSick sinus syndromeChro suzi diastolic (congestive) heart failureChron ic kidney diseaseChest painPresence of cardiac pacemakerPre sence of coronary angioplasty implant and graftCoronar y angioplasty statusAnemia 9 Joel Rivera. [address] [place], [place], [id number], [place]. tel:[phone] Referring Provider: Thompson Mayer, [address], [place], [address]. tel:[phone] INPATIENT CONSULTATION [facility], [facility], [place], [id number], [place] tel:[phone] [facility] No Information 9 Joel Rivera. [address] [place], [id number], [place]. tel:[phone] Referring Provider: Jose Matute, [address] [place] [address] [address], [place], [address]. tel:[phone] Office/outpat ient visit, est [facility], [facility] [place], [id number], [place] tel:[phone] [facility] PMC ER (chief complaint)CA D/ Chronic diastolic CHF (chief complaint)Si ck sinus syndrome/ Chronic renal insufficienc y (chief complaint)HT N/ Hyperlipidem ia (chief complaint)Sl eep apnea (chief complaint)No n-insulin dependent (chief complaint) Type 2 diabetes mellitus without complication sEssential (primary) hypertension Subsequent non-ST elevation (NSTEMI) myocardial infarctionAt [facility] heart disease of [place] coronary artery w/o ang pctrsSick sinus syndromeChro suzi diastolic (congestive) heart failureChest painChronic kidney diseasePrese nce of cardiac pacemakerPre sence of coronary angioplasty implant and graftCoronar y angioplasty statusSleep apneaBody mass index (BMI) 38.0-38.9, adult Mar-0 9 Joel Rivera. [address] [place], [place], [id number], [place]. tel:[phone] Referring Provider: Thompson Mayer, [address], [place], [address]. tel:[phone] SUBSEQUENT HOSPITAL CARE [facility], [address] [place], [place], [id number], [place] tel:[phone] [facility] No Information 9 Joel Rivera. [address] [place], [id number], [place]. tel:[phone] Referring Provider: Addy Arora, [address] [place], [address]. tel:[phone] INPATIENT CONSULTATION [facility], [address], [place], [id number], [place] tel:[phone] [facility] No Information 9 Son Cantrell. [address] [place], [place], [id number], . tel:[phone] Referring Provider: Addy Arora, [address] [place], [address]. tel:[phone] OFFICE/OUTPAT IENT VISIT, EST [facility], [address], [place], [id number], [place] tel:[phone] [facility] (chief complaint) Hyperlipidem iaSleep apneaEssenti al (primary) hypertension Chronic diastolic (congestive) heart failurePrese nce of cardiac pacemakerCor onary angioplasty statusAthscl heart disease of burns [place] coronary artery w/o ang pctrsSick sinus syndromeChes t painAnemiaTy pe 2 diabetes mellitus without complication sSubsequent non-ST elevation (NSTEMI) myocardial infarctionBo dy mass index (BMI) 38.0-38.9, adultPresenc e of coronary angioplasty implantAngin aChronic renal insufficienc y Joel Rivera. [address] [place], [place], [id number], [place]. tel:[phone] Referring Provider: Thompson Mayer, [address], [place], [address]. tel:[phone] SUBSEQUENT HOSPITAL CARE [facility], [facility] [place], [place], [id number], [place] tel:[phone] [facility] No Information 9 Joel Rivera. [address] [place], [place], [id number], [place]. tel:[phone] Referring Provider: Norman Da Silva, [address], [place], [address]. tel:[phone] INPATIENT CONSULTATION [facility], [facility] [place], [id number], [place] tel:[phone] [facility] No Information 9 Son Cantrell. [address] [place], [id number], [place]. tel:[phone] Referring Provider: Norman Da Silva, [address], [place], [address]. tel:[phone] Office/outpat ient visit, [facility], [address] [place] [address], [id number], tel:[phone] [facility] PMC (chief complaint)HT N/ Diastolic CHF (chief complaint)Hy perlipidemia / Sleep apnea (chief complaint)CA D/ Sick sinus syndrome (chief complaint)Ca rdiac pacemaker/ Coronary angioplasty status (chief complaint) Essential (primary) hypertension [facility] heart disease of [place] coronary artery w/o ang pctrsSick sinus syndromePres ence of cardiac pacemakerCor onary angioplasty statusDisord er of kidneyHyperl ipidemiaSlee p apneaBody mass index (BMI) 40.0-44.9, adultSubsequ ent non-Q wave acute MIChronic diastolic (congestive) heart failureChron ic kidney disease 9 Joel Rivera. [address] [place], [id number], [place]. tel:[phone] Referring Provider: Thompson Mayer, [address], [place], [address]. tel:[phone] SUBSEQU[facility]OSPITAL CARE [facility], [address] [place] [address], [id number], [place] tel:[phone] [facility] No Information 9 Joel Rivera. [address] [place], [place], [id number], [place]. tel:[phone] Referring Provider: Óscar Mayer, [address] [place], [address]. tel:[phone] INITIAL [facility], [address] [place] [address], [id number], [place] tel:[phone] [facility] No Information 9 Son Cantrell. [address] [place], [place], [id number], [place]. tel:[phone] Referring Provider: Óscar Mayer, [address] [place], [address]. tel:[phone] INPATIENT CONSULTATION [facility], [facility], [place], [id number], [place] tel:[phone] [facility] No Information 9 Son Cantrell. [address] [place], [id number], [place]. tel:[phone] Referring Provider: Jani Ray, [address] [facility], [place], [address]. tel:[phone] Office/outpat ient visit, est [facility], [address] [place] [address], [id number], tel:[phone] [facility] (chief complaint)Ch est pain (chief complaint)Ca rdiovascular Review (chief complaint) Hyperlipidem iaSleep apneaEssenti al (primary) hypertension [facility] heart disease of [place] coronary artery w/o ang pctrsSick sinus syndromeDias tolic CHFPresence of cardiac pacemakerCor onary angioplasty status 8 Son Cantrell. [address] [place], [id number], [place]. tel:[phone] Referring Provider: Óscar Mayer, [address] [place], [address]. tel:[phone] INPATIENT CONSULTATION [facility], [address] [place] [address], [id number], [place] tel:[phone] [facility] No Information 8 Son Cantrell. [address] [place], [id number], [place]. tel:[phone] Referring Provider: Buddy Millan, [address], [place], [address]. tel:[phone] [facility], [facility] [place], [place], [id number], tel:[phone] [facility] PMC (chief complaint)CH F (chief complaint)HT N (chief complaint)CA D (chief complaint)Re nal insufficienc y (chief complaint)Hy perlipidemia (chief complaint) Hyperlipidem iaEssential (primary) hypertension [facility] heart disease of [place] coronary artery w/o ang pctrsSick sinus syndromePres ence of cardiac pacemakerSle ep apneaCoronar y angioplasty statusDiasto lic CHFRenal insufficienc y 8 Joel Rivera. [address] [place], [id number], [place]. tel:[phone] Referring Provider: Thompson Mayer, [address], [place], [address]. tel:[phone] [facility], [address] [place] [address], [id number], tel:[phone] [facility] No Information Sep-2 8 Son Cantrell. [address] [place], [id number], [place]. tel:[phone] Referring Provider: Maria Luisa Montano, [address] [place] [address], [id number]. tel:[phone] [facility], [address] [place] [address], [id number], [place] tel:[phone] Formerly [facility] No Information Sep-2 8 Son Cantrell. [address] [place], [place], [id number], [place]. tel:[phone] Referring Provider: Óscar Mayer, [address] [place], [address]. tel:[phone] [facility], [address] [place] [address], [id number], [place] tel:[phone] [facility] No Information Sep-1 8 Joel Rivera. [address] [place], [place], [id number], . tel:[phone] Referring Provider: Miguel Mayer, [address] [place], [address]. tel:[phone] INPATIENT CONSULTATION [facility], [facility] [place], [place], [id number], [place] tel:[phone] [facility] No Information Joel Rivera. [address] [place], [place], [id number], [place]. tel:[phone] Referring Provider: Maria Luisa Montano, [address] [place] [address], [id number]. tel:[phone] [facility], [address] [place] [address], [id number], [place] tel:[phone] [facility] CAD (chief complaint)HT N (chief complaint)Hy perlipidemia (chief complaint)Si ck Sinus Syndrome (chief complaint)Ch ronic renal insufficienc y (chief complaint)Ch est Pain (chief complaint) Essential (primary) hypertension Athscl heart disease of burns paiute coronary artery w/o ang pctrsSick sinus syndromeHype rlipidemiaSl eep apneaDisorde r of kidneyInflam matory liver diseaseOther specified diabetes mellitus with diabetic amyotrophyCo ronary angioplasty statusPresen ce of cardiac pacemaker Joel Rivera. [address] [place], [place], [id number], . tel:[phone] Referring Provider: Miguel Mayer, [address] [place], [address]. tel:[phone] [facility], [address] [place] [address], [id number], [place] tel:[phone] [facility] No Information Joel Rivera. [address] [place], [place], [id number], . tel:[phone] Referring Provider: Miguel Mayer, [address] [place], [address]. tel:[phone] Office/outpat ient visit, est [facility], [address] [place] [address], [id number], [place] tel:[phone] [facility] PMC (chief complaint)Ch est Pain (chief complaint)HT N (chief complaint)Re nal insufficienc y (chief complaint)Si ck sinus syndrome (chief complaint)CA D (chief complaint) Sick sinus syndromeChes t painRenal insufficienc yAthscl heart disease of burns paiute coronary artery w/o ang pctrsHyperte nsionSleep apneaPresenc e of cardiac pacemakerCor onary angioplasty statusHyperl ipidemiaBody mass index (BMI) 40.0-44.9, adult 8 Joel Rivera. [address] [place], [id number], [place]. tel:[phone] Referring Provider: Miguel Mayer, [address] [facility] [place], [address]. tel:[phone] [facility], [facility] [place], [place], [id number], [place] tel:[phone] [place] Sick sinus syndromeOthe r specified diabetes mellitus with diabetic amyotrophyHe patitisHepat itis C 8 Son Cantrell. [address] [place], [id number], [place]. tel:[phone] INPATIENT CONSULTATION [facility], [address], [place], [id number], [place] tel:[phone] [facility] No Information 8 Joel Rivera. [address] [place], [id number], [place]. tel:[phone] Referring Provider: Óscar Edmond, [address] [place], [address]. tel:[phone] OFFICE/OUTPAT IENT CONSULT [facility], [address], [place], [id number], [place] tel:[phone] [facility] No Information 8 Joel Rivera. [address] [place], [id number], [place]. tel:[phone] Referring Provider: Adarsh Hernandez MD, [address] [place] [address], [place], [address]. tel:[phone] [facility], [address] [place] [address], [id number], [place] tel:[phone] [facility] No Information 8 Son Cantrell. [address] [place], [id number], [place]. tel:[phone] Referring Provider: Miguel Mayer, [address] [place], [address]. tel:[phone] [facility], [address] [place] [address], [id number], [place] tel:[phone] [facility] No Information 8 Joel Rivera. [address] [place], [id number], [place]. tel:[phone] Referring Provider: Vijaya Da Silva, [address], [place], [address]. tel:[phone] [facility], [address] [place] [address], [id number], [place] tel:[phone] [facility] No Information Joel Rivera. [address] [place], [id number], [place]. tel:[phone] Referring Provider: Dixie Mcnamara, [address] [place], [address]. tel:[phone] OFFICE/OUTPAT IENT VISIT, NINOSKA [facility], [address] [place] [address], [id number], [place] tel:[phone] [facility] No Information 8 Joel Rivera. [address], [place], [place], [id number], . tel:[phone] Referring Provider: Adarsh Hernandez MD, [address] [place] [address], [id number]. tel:[phone] Family History Family Member Type Diagnosis Age At Onset Problem (finding) Family history of coronary arteriosclerosis Problem (finding) Myocardial infarction Payers Payer name Insurance type Covered green party ID Authoriza katerine(s) [facility] [id number] Social History Type Description Quantity Date Captured Comments Sex Male Smoking Status No Information Chief Complaint And Reason For Visit No Information Reason For Referral Reason For Referral No Information Plan Of Treatment Date Type Action Status Goal Tobacco cessation counseling completed Goal Lifestyle education regardin g diet completed Goal Tobacco cessation counseling completed Goal Tobacco cessation counseling completed Goal Tobacco cessation counseling completed Goal Tobacco cessation counseling completed Goal Lifestyle education regardin g diet completed Goal Tobacco cessation counseling completed Goal Lifestyle education regardin g diet completed Goal Lifestyle education regardin g diet completed Goal Tobacco cessation counseling completed Goal Tobacco cessation counseling completed Goal Tobacco cessation counseling completed Goal Tobacco cessation counseling completed Goal Lifestyle education regardin g diet completed Goal Tobacco cessation counseling completed Patient Education DASH Diet: Care Instruc tions completed Patient Education A Healthy Heart: Care I nstructions completed Patient Education DASH Diet: Care Instruc tions completed Patient Education High Blood Pressure: Ca re Instructions completed Patient Education DASH Diet: Care Instruc tions completed Patient Education DASH Diet: Care Instruc tions completed Patient Education DASH Diet: Care Instruc tions completed Patient Education DASH Diet: Care Instruc tions completed Patient Education DASH Diet: Care Instruc tions completed Patient Education DASH Diet: Care Instruc tions completed Patient Education High Blood Pressure: Ca re Instructions completed Patient Education DASH Diet: Care Instruc tions completed Patient Education High Blood Pressure: Ca re Instructions completed History Of Present Illness Encounter Date Complaint History Of Prese nt Illness Chest pain PMC- ER Jed Kumari is a 49yr old male with pmh HTN, intolerance to multiple medications, chronic diastolic congestive heart failure, ESRD on peritoneal dialysis, hepatitis C, chronic gastrointestinal bleeding, chronic pancreatitis, obstructive sleep apnea, dyslipidemia, sick sinus syndrome status post single-chamber pacemaker placement (Medtronic Advisa DR dual-chamber pacemaker, 09/08/16), coronary artery disease status post PCI to the right coronary artery in March 2016 and again 08/23/18, PCI of the left circumflex artery in 09/2018, and in 03/16/19, successful balloon angioplasty of the proximal and mid right coronary in-stent restenosis presenting for hospital follow-up regarding chest discomfort. Primary squeegee finisher is Miguel Maldonado. Brilinta was discontinued in October 2018 due to multiple admissions for gastrointestinal bleeding requiring blood transfusions. Patient reports..Social Hx:Family Hx:Cardiac Medications:ECG: PMC ER Chest pain End-stage renal disease Chronic diastolic CHF HTN/Hyperlipidemia Anemia Office visit CAD HTN Diastolic CHF Sleep apnea 3 month/[facility]/Post Hospital [facility] PMC Non-Q wave IN/ CAD Chronic diastolic CHF/ Anemia Hyperlipidemia/ Slee p apnea/ Insulin dependent Sick sinus syndrome/ Chronic kidney disease Anemia Sick sinus syndrome NSTEMI HTN Chronic diastolic CHF CAD CAD/ Chronic diastolic CHF Cardiovascular Review He has had no chest discomfort suggestive of ischemia. The patient denies orthopnea, PND, TYSON, or edema. Mr. Kumari has not had palpitations, syncope or near syncope. He denies claudication. There is no discoloration or ulceration of the lower extremities. He has had no TIA or stroke-like symptoms. The patient has no symptoms attributable to valvular heart disease. [facility] ER Patient presents for Post-Hospital for GI bleed (Hgd 8.6 s/p transfusion), primary Lead Assistant Manager is Dr. Maldonado last seen on 10/15/2018. Pt with medical history of CAD- multi vessel disease with multi prior stents mot recently 08/23/2018 acute non-Q-wave IN s/p stenting distal RCA, balloon angioplasty mid RCA (Dr. Cordoba) with subsequent stenting prox LCX and 2ndOM on 09/20/2018. Pt also with Chronic diastolic CHF, HTN, CKD stage IV- followed up nephrology baseline Cr 3.6, HLD, HANNAH- on CPAP, and DM.Of note-following recent IN 08.23.2018, pt hospitalization 09/16/2017 with acute CHF exacerbation and anemia requiring transfusion prior to repeat LHC with stenting. Again 10/01/2018 hospitalization at [facility] anemia with GI recurrent bleeding Hgb 6.9 s/p transfusion 2U PRBC with prior upper and lower EGD 09/25/2018 with colon polys in situ and diffuse erosive gastritis. 10/30 outpt transfusion. Most recent hospitalization on 11/03/2018 with anemia, GI bleed, requiring repeat transfusion 2 U PRBC and Brilinta being held, pt continue on aspirin 81mg daily alone.Echocardiogram as inpt at [facility] on 10/06/2018: mild concentric LVH, mildly reduced LVSF, EF 40-45%, LA mildly dilated, G2DD, Mild MR. LEV 08/23/2018: negative DVT bilateral 08/23/2018Today patient reports feeling well without concerns for bleeding- no hematuria or melena. Pt continues on aspirin alone, holding Brilinta. Denies anginal symptoms since d/c 11/04/2018. Reports energy still low, but improving. Denies no TYSON, palps, SOB, or dizziness. Pt also continue f/u with nephrology apt next week. Pt reports iron infusion to start early next week.Cardiac medication regimen: aspirin 81mg daily, torsemide 40mg BID, rosuvastatin 5mg daily, Ranexa 1000mg BID, Hydralazine 100mg TID, Clonidine 0.3mg BID. Family history: Positive family hx of premature CAD or IN. Father- IN age 55.Social Hx: Tobacco Use: History smoking, quit 2017. Pt denies alcohol and illicit drug use. Sick sinus syndrome/ Renal insufficiency HTN/ Hyperlipidemia Sleep apnea/ Gastroi ntestinal bleeding CAD/ Chronic diastolic CHF Sick sinus syndrome/ Chronic renal insufficiency HTN/ Hyperlipidemia Sleep apnea Non-insulin dependent [facility] ER Patient presents for PH scheduled follow up at [facility] 10/06/2018, primary Lead Assistant Manager is Dr. Maldonado last seen on 10/01/2018. Pt with medical history of CAD- multi vessel disease with multi prior stents mot recently s/p stenting distal RCA, balloon angioplasty mid RCA 08/2018, then prox LCX and 2nd PM 09/2018. Pt also with Chronic diastolic CHF, HTN, CKD stage IV- followed up nephrology, HLD, HANNAH- on CPAP, and DM. Post Hospital/[facility] Cardiac pacemaker/ C oronary angioplasty status CAD/ Sick sinus syndrome Hyperlipidemia/ Sleep apnea HTN/ Diastolic CHF [facility] Cardiovascular Review He has had no chest discomfort suggestive of ischemia. The patient denies orthopnea, PND, TYSON, or edema. Mr. Kumari has not had palpitations, syncope or near syncope. He denies claudication. There is no discoloration or ulceration of the lower extremities. He has had no TIA or stroke-like symptoms. The patient has no symptoms attributable to valvular heart disease. Post Hospital/[facility] Pt present tod for PH PMC on 06/25/2018 for HTN urgency with chest discomfort- ACS rule out.Pt with medical history HTN, chronic diastolic HF, intermittent anasarca, hep C, CKD stage III (recent Cr 2.9), chronic pancreatitis, HANNAH, HLD, sick sinus syndrome s/p PPM 08/2016 Medtronic, CAD- s/p multiple KIANNA to RCA last 04/2016. Pt with multiple hospitalization January to April 2018 for congestive heart failure with uncontrolled HTN, and chronic kidney disease stage III.Today states he is feeling better since recent hospitalization for CP, CHF, and HTN urgency. He is at his dry weight 297 with no UE edema. Pt endorses continued good response to torsemide 40mg BID - diuresis changed by nephrology. Pt saw nephrology last week for management for his HTN and diuresis.Current cardiac medication regimen: ASA 801 daily, torsemide 40mg BID. Previous intolerance to BB and ACEi. Pt d/c clonidine and spironolactone- by nephrology.Denies anginal symptoms, no TYSON, palps, SOB, or dizziness.Social Hx:-Tobacco Use: Nonsmoker.ECG: sinus TACHYCARDIC rhythm, rate 115 with TWI inferior leads- UNCHANGED from previous. Chest pain Renal insufficiency Hyperlipidemia PMC CHF HTN CAD Chest Pain Chronic renal insufficiency Sick Sinus Syndrome Hyperlipidemia HTN CAD Sick sinus syndrome Renal insufficiency HTN Chest Pain PMC CAD Functional Status Date Functional Assessmen t No Information Instructions Date Instruction Additional Zulmar henrique Giving encouragement to exercise Related to Body mass index (BMI) 40.0-44.9, adult Lifestyle education regarding di et Related to Body mass index (BMI) 40.0-44.9, adult Giving encouragement to exercise Related to Essential (primary) hypertension Dietary needs education (procedu re) Related to Essential (primary) hypertension Hypertension education Related t o Essential (primary) hypertension Giving encouragement to exercise Related to Body mass index (BMI) 38.0-38.9, adult Lifestyle education regarding di et Related to Body mass index (BMI) 38.0-38.9, adult Dietary needs education (procedu re) Related to Essential (primary) hypertension Giving encouragement to exercise Related to Essential (primary) hypertension Lifestyle education regarding di et Related to Body mass index (BMI) 38.0-38.9, adult Giving encouragement to exercise Related to Body mass index (BMI) 38.0-38.9, adult Hypertension education Related t o Essential (primary) hypertension Giving encouragement to exercise Related to Body mass index (BMI) 40.0-44.9, adult Lifestyle education regarding di et Related to Body mass index (BMI) 40.0-44.9, adult Giving encouragement to exercise Related to Essential (primary) hypertension Lifestyle education regarding diet (procedure) Related to Essential (primary) hypertension Hypertension education Related t o Essential (primary) hypertension Lifestyle education regarding di et Related to Body mass index (BMI) 40.0-44.9, adult Lifestyle education regarding diet (procedure) Related to Essential (primary) hypertension Assessments Type Assessment Date No Information Patient Care Teams Name Effective Dates (start - stop) Status Members No Information
--- OUTSIDE RECORDS SUMMARY | 2024-09-30 14:43 | XMS_ITS | Continuity of Care Document ---
Author Organization [facility] Address [address] [place] [address] Phone Care Team Providers Care Cell Installer Name Role Phone Baljinder BANKS, Herbert Unavailable Unavailable Procedures Procedure Date [facility] Percutaneous Placement Intracoronary Prince nt TTE W/DOPPLER, COMP EMERGENCY DEPT VISIT OFFICE CONSULTATION TTE W/DOPPLER, COMP Advance Directives Directive Yes / No Effective Date File Name No Information Encounters Encounter Description Practice Location Reason(s) For Visit Diagnoses Date Provider Providers Copied on Encounter [facility], [address] , [place], [place], [facility], tel:[phone] [facility] No Information 9 Baljinder Godinez . [address] [place] [address], [id number], . tel:[phone] [place] [address] [address] [place], [place], [facility], tel:[phone] [facility] IP No Information 9 Adalid Portillo. [address] [place] [address], [id number], . tel:[phone] [address] [address] [address] , [place], [place], [facility], tel:[phone] [facility] IP No Information 9 Eliel Esteves. [address] [place] [address], [id number], . tel:[phone] EMERGENCY DEPT VISIT [facility], [address] [place], [place], [facility], tel:[phone] [facility] ER No Information 7 Deepak Jain. [address] [place], [place], [facility], . tel:[phone] OFFICE CONSULTATION [facility], [address], [place], [place], [facility], tel:[phone] [facility] OP No Information 7 Eliel Esteves. [address] [place] [address], [id number], . tel:[phone] [facility], [address] , [place], [place], [facility], tel:[phone] [facility] OBS No Information 7 Amrit Alvarez. [address] [place] [address], [id number], . tel:[phone] Family History Family Member Type Diagnosis Age At Onset No Information Payers Payer name Insurance type Covered constitution party ID Authorjolneea katerine(s) [facility] [id number] Social History Type Description Quantity Date Captured Comments Alcohol Use Details Unknown Caffeine Use Details Unknown Tobacco Use Status No Information Smoking Status No Information Sex Male Chief Complaint And Reason For Visit No Information Reason For Referral Reason For Referral No Information History Of Present Illness Encounter Date Complaint History Of Prese nt Illness No Information Functional Status Date Functional Assessmen t No Information Instructions Date Instruction Additional Infor mation No Information Assessments Type Assessment Date No Information Patient Care Teams Name Effective Dates (start - stop) Status Members No Information
== END 2024-09-30 14:34 | disposition home or self-care (01) ==
PROVIDERS: PCP Internal Medicine; Visit Provider Internal Medicine Cardiovascular Disease
DX: I20.0 Unstable angina (principal)
CPT/HCPCS: 93010; 99204

== ENCOUNTER → 2024-10-01 14:59 | Outpatient (REF) | payer BC, SELFPAY ==
--- NOTE | 2024-10-01 15:01 | CA_ITS ---
Transthoracic Echocardiogram Patient (Last, First, Middle): Jed Lawrence B Gender: Male Date of : 1970 Age: 54 Procedure Date: 10/01/2024 Procedure Type: Transthoracic Echocardiogram Location: OP Height: 177. cm Weight: 81.65 kg BSA: 1.99 m2 Heart Rate: 57 bpm BP: 162 / 100 mmHg Machine Adjuster Leader: SEBASTIAN Referring MD: Nolberto Odom MD Symptoms: I20.0 - Unstable angina Study Quality: Adequate ECG Rhythm: Bradycardia Conclusions: - The left ventricular systolic function is low normal. The visually estimated ejection fraction is between 50-55%. - The apical septum, mid inferoseptal, and mid anteroseptal segments are hypokinetic. - Moderately increased right ventricular cavity size. - No obvious valvular pathology seen on this study. Findings Left Ventricle Normal left ventricular cavity size. There is normal left ventricular wall thickness. The left ventricular systolic function is low normal. The visually estimated ejection fraction is between 50-55%. Evidence suggests grade I (mild) diastolic dysfunction. Wall Motion Rest Echo Findings The apical septum, mid inferoseptal, and mid anteroseptal segments are hypokinetic. Right Ventricle Moderately increased right ventricular cavity size. There is normal right ventricular systolic function. Atria Both atria are normal in size. Aortic Valve There is a normal trileaflet aortic valve. There is no aortic valve stenosis. There is no aortic valve regurgitation. Mitral Valve The mitral valve appears normal. There is trace mitral valve regurgitation. There is no mitral valve stenosis. Pulmonic Valve The pulmonic valve is likely normal. Tricuspid Valve There is trace tricuspid valve regurgitation. There is no evidence of pulmonary hypertension. Great Vessels The asc aorta is normal in size. Venous The inferior vena cava is normal in size. Pericardium/Pleural There is no evidence of pericardial effusion. Prior Study Comparison No prior study available for comparison. Recommendations, Care & Conclusions No obvious valvular pathology seen on this study. Measurements 2D Linear Measurements IVSd: 1.00 0.6-0.9/0.6-1.0 cm LVIDd: 4.90 3.9-5.3/4.2-5.9 cm LVIDd Index: 2.46 2.4-3.2/2.2-3.1 cm/m2 LVIDs: 2.88 2.0-3.6 cm LVPWd: 1.03 0.7-1.1 cm LA Diam: 4.00 2.7-3.8/3.0-4.0 cm LAIDs Index: 2.01 1.5-2.3 cm/m2 LV Mass: 223.32 67-162/88-224 g LV Mass Index: 112.22 43-95/49-115 g/m2 LVOT Diam: 2.10 3.0+(-)1.3 cm 2D Systolic Function EF 4C: 56.30 >55% EF 2C: 54.60 >55% EF BiP: 55.80 >55% Mitral Valve MV Pk E: 0.32 MV PK A: 0.71 MV Decel Time: 371.00 E/A: 0.40 E'Lateral: 6.85 E'Medial: 5.11 E/E' Med: 6.20 E/E' Lat: 4.60 PHT: 109.00 MVA PHT: 2.02 Decel Hancock: 0.85 Aortic Valve AoV Pk Sukumar: 1.21 AoV Mn Sukumar: 0.92 AoV VTI: 0.28 AoV Pk Grad: 6.00 Aov Mn Grad: 4.00 IRASEMA Cont.VTI: 2.82 LVOT LVOT Pk Sukumar: 1.08 LVOT Mn Sukumar: 0.78 LVOT VTI: 0.23 LVOT Pk Grad: 5.00 LVOT Mn Grad: 3.00 LVOT Diam: 2.10 LVOT Area: 3.46 Diastolic Function MV Pk E: 0.32 MV Pk A: 0.71 E/A: 0.40 E'Medial: 5.11 E/E' Med: 6.20 E' Laterial: 6.85 E/E' Lat: 4.60 Right Ventricle TAPSE (mm): 23.30 TVS' Sukumar: 13.50 Tricuspid Valve TR Pk Sukumar: 1.40 TR Pk Grad: 8.00 Great Vessels Aorta Sinus of Valsalva: 4.00 2.0-3.5 cm Ao Asc: 3.70 2.1-3.4 cm Pulmonary Valve PV Pk Sukumar: 0.91 Peak PV Grad: 3.00 Updated in Other Vendor System with Status of Final Tae Larios MD electronically signed on 10/02/2024 3:42:35 PM with status of Final
--- OUTSIDE RECORDS SUMMARY | 2024-10-01 15:02 | XMS_ITS | Continuity of Care Document ---
Author Organization [facility] Address [address] [place] [address] Phone Care Team Providers Care Trading Floor Operator Name Role Phone Baljinder BANKS, Herbert Unavailable Unavailable Procedures Procedure Date [facility] Percutaneous Placement Intracoronary [place] nt TTE W/DOPPLER, COMP EMERGENCY DEPT VISIT OFFICE CONSULTATION TTE W/DOPPLER, COMP Advance Directives Directive Yes / No Effective Date File Name No Information Encounters Encounter Description Practice Location Reason(s) For Visit Diagnoses Date Provider Providers Copied on Encounter [facility], [address] , [place], [place], [facility], tel:[phone] [facility] No Information 9 Baljinder Godinez . [address] [place] [address], [id number], . tel:[phone] [place] [address] [place], [place], [facility], tel:[phone] [facility] IP No Information 9 Adalid Portillo. [address] [place] [address], [id number], . tel:[phone] [place] [address] , [place], [place], [facility], tel:[phone] [facility] IP No Information 9 Eliel Esteves. [address] [place] [address], [id number], . tel:[phone] EMERGENCY DEPT VISIT [facility], [address] [place], [place], [facility], tel:[phone] [facility] ER No Information 7 Deepak Jain. [address] [place], [place], [facility], . tel:[phone] OFFICE CONSULTATION [place] [facility], [address], [place], [place], [facility], tel:[phone] [facility] OP No Information 7 Eliel Esteves. [address] [place] [address], [id number], . tel:[phone] [facility], [address] , [place], [place], [facility], tel:[phone] [facility] OBS No Information 7 Amrit Alvarez. [address] [place] [address], [id number], . tel:[phone] Family History Family Member Type Diagnosis Age At Onset No Information Payers Payer name Insurance type Covered republican ID Authorjolenea katerine(s) [facility] [id number] Social History Type Description Quantity Date Captured [...]
--- OUTSIDE RECORDS SUMMARY | 2024-10-01 15:02 | XMS_ITS | Continuity of Care Document ---
Author Organization [facility] Address [address] [place] [id number] Phone Care Team Providers Care Service Planner Name Role Phone Wellington Yo MD Unavailable [...] Providers Copied on Encounter OFFICE CONSULTATION (ESTABLISHED) [facility], [address], [id number] , tel:[phone] [place] allergy symptoms (chief complaint) Adverse effect of drug/meds/biol subst, subsAtopic dermatitis, unspecifiedChronic rhinitisShortness of breath 7 Srinath Lemus [address] [facility] [place], [place], [id number] , . tel:[phone] Referring Provider: Hilda [place], [address] [address], [address] [facility] [place], [address]. tel:[phone] Family History Family Member Type Diagnosis Age At Onset No Information Immunizations Vaccine Date Status Comments Influenza 3 years or older administered S ource: Other Provider Payers Payer name Insurance type Covered republican ID Paul garcias(s) [employer] [facility]. [id number] Social History Type Description Quantity Date Captured [...] on Plavix and could not speak in [place]ral[place] but could communicate in other languages. He is still on ASA, increased to 325mg from 81mg. Stopped long-acting insulin but continues on Novolog. On anti-GERD medication. Saw optical model maker and tester 2 weeks ago and was placed on [...] Mental Status Date Cognitive Assessment Orientation - [place] ed to time, place, person, situation. Patient Care Teams Name Effective Dates (start - stop) Status Members No Information
--- OUTSIDE RECORDS SUMMARY | 2024-10-01 15:02 | XMS_ITS | Continuity of Care Document ---
Author Organization [id number] | [employer] Address [address] [place] [address] Phone Care Team Providers Care Pharmacoepidemiologist Name Role Phone Levi Gale MD Unavailable [...] Copied on Encounter [facility], [address] [place] [address], [id number], tel:[phone] [facility] No Information 1 Baljinder Sims. [address] [place] [address], [id number], . tel:[phone] [facility], [address] [place] [address], [id number], tel:[phone] [facility] No Information 1 Son Cantrell. [address] [place], [id number], . tel:[phone] Count includes the [facility], [address] [place] [address], [address] [place] [address], tel:[phone] [facility] No Information 0 Moncho Schumacher. [address], [place], [place], [facility], [place]. tel:[phone] Count includes the [facility], [address] [place] [address], [address] [place] [address], tel:[phone] [facility] No Information 0 Joel Rivera. [address] [place], [place], [address] [place] [address], . tel:[phone] Referring Provider: Miguel Mayer, [address] [place], [address]. tel:[phone] Count includes the [facility], [address] [place] [address], [address] [place] [address], tel:[phone] [facility] No Information 0 Joel Rivera. [address] [place], [address] [place] [address], . tel:[phone] Count includes the [facility], [address] [place] [address], [id number], tel:[phone] [facility] PMC- ER (chief complaint)Ch est pain (chief complaint) AnemiaType 2 diabetes mellitus without complication sMixed hyperlipidem iaSleep apneaEssenti al (primary) hypertension Subsequent non-ST elevation (NSTEMI) myocardial infarctionAt hscl heart disease of [place] coronary artery w/o ang pctrsSick sinus syndromeChro suzi diastolic (congestive) heart failureEnd stage renal diseaseChest painBody mass index (BMI) 40.0-44.9, adultPresenc e of cardiac pacemakerPre sence of coronary angioplasty implant and graftPersona l history of nicotine dependence 0 Son Cantrell. [address] [place], [place], [id number], . tel:[phone] Referring Provider: Miguel Mayer, [address] [place], [address]. tel:[phone] [facility], [address] [place] [address], [id number], [place] tel:[phone] [facility] PMC ER (chief complaint)Ch est pain (chief complaint)En d-stage renal disease (chief complaint)Ch ronic diastolic CHF (chief complaint)HT N/Hyperlipid emia (chief complaint)An emia (chief complaint) Type 2 diabetes mellitus without complication sMixed hyperlipidem iaEssential (primary) hypertension Subsequent non-ST elevation (NSTEMI) myocardial infarctionAt hscl heart disease of [place] coronary artery w/o ang pctrsSick sinus syndromeChro suzi diastolic (congestive) heart failureBody mass index (BMI) 40.0-44.9, adultPresenc e of cardiac pacemakerAne miaChest painSleep apneaEnd stage renal diseasePrese nce of coronary angioplasty implant and graft 0 Joel Rivera. [address] [place], [place], [id number], [place]. tel:[phone] [facility], [address] [place] [address], [id number], [place] tel:[phone] [facility] No Information 0 Joel Rivera. [address] [place], [id number], [place]. tel:[phone] [facility], [address] [place] [address], [id number], [place] tel:[phone] [facility] No Information 0 Joel Rivera. [address] [place], [id number], [place]. tel:[phone] Referring Provider: Thompson Bhatt, [address] [place], [address]. tel:[phone] OFFICE/OUTPAT IENT CONSULT [facility], [address] [place] [address], [id number], [place] tel:[phone] [facility] No Information 0 Joel Rivera. [address] [place], [id number], [place]. tel:[phone] Referring Provider: Thompson Bhatt, [address], [place], [address]. tel:[phone] Office/outpat ient visit, [facility], [facility], [place], [id number], [place] tel:[phone] [facility] Office visit (chief complaint)CA D (chief complaint)HT N (chief complaint)Di astolic CHF (chief complaint)Sl eep apnea (chief complaint) Essential (primary) hypertension Subsequent non-ST elevation (NSTEMI) myocardial infarctionAt hscl heart disease of [place] coronary artery w/o ang pctrsSick sinus syndromeChro suzi diastolic (congestive) heart failureAnemi aSleep apneaMixed hyperlipidem iaChronic kidney diseaseType 2 diabetes mellitus without complication sBody mass index (BMI) 40.0-44.9, adultPresenc e of cardiac pacemakerPre sence of coronary angioplasty implant and graft 9 Joel Rivera. [address] [place], [id number], [place]. tel:[phone] Referring Provider: Miguel Mayer, [address] [place], [address]. tel:[phone] [facility], [address] [place] [address], [id number], [place] tel:[phone] [facility] No Information 9 Joel Rivera. [address] [place], [id number], [place]. tel:[phone] Referring Provider: Miguel Mayer, [address] [place], [address]. tel:[phone] Office/outpat ient visit, [facility], [address], [place], [id number], [place] tel:[phone] [facility] 3 month/PMC/[facility] (chief complaint) C (chief complaint) Essential (primary) hypertension Subsequent non-ST elevation (NSTEMI) myocardial infarctionAt [facility] heart disease [place] coronary artery w/o ang pctrsChronic diastolic (congestive) heart failureSick sinus syndromeAnem iaPresence of cardiac pacemakerPre sence of coronary angioplasty implant and graftSleep apneaType 2 diabetes mellitus without complication sHyperlipide miaChronic kidney diseasePerso nal history of nicotine dependenceBo dy mass index (BMI) 40.0-44.9, adult Aug- 9 Joel Rivera. [address] [place], [place], [id number], [place]. tel:[phone] Referring Provider: Miguel Mayer, [address] [place], [address]. tel:[phone] [facility], [address] [place] [address], [id number], [place] tel:[phone] [facility] PMC (chief complaint)No n-Q wave [place]/ CAD (chief complaint)Ch ronic diastolic CHF/ Anemia (chief complaint)Hy perlipidemia / Sleep apnea/ Insulin dependent (chief complaint)Si ck sinus syndrome/ Chronic kidney disease (chief complaint) Type 2 diabetes mellitus without complication sSleep apneaAnemiaE ssential (primary) hypertension Subsequent non-ST elevation (NSTEMI) myocardial infarctionAt [facility] heart disease of [place] coronary artery w/o ang pctrsSick sinus syndromeChro suzi diastolic (congestive) heart failureChron ic kidney diseasePrese nce of cardiac pacemakerPre sence of coronary angioplasty implant and graftCoronar y angioplasty status 9 Joel Rivera. [address] [place], [place], [id number], [place]. tel:[phone] [facility], [address] [place] [address], [id number], [place] tel:[phone] [facility] No Information 9 Moncho Schumacher. [address], , [place], [address], [place]. tel:[phone] Referring Provider: Rosmery Jang [address], [place], [address]. tel:[phone] [facility], [facility] [place], [id number], tel:[phone] [facility] No Information 8201 9 Son Cantrell. [address] [place], [id number], [place]. tel:[phone] Referring Provider: [address], [place], [address]. tel:[phone] CRITICAL CARE, FIRST HOUR [facility], [address] [place] [address], [id number], [place] tel:[phone] [facility] No Information 201 9 Joel Miguel. [address] [place], [id number], [place]. tel:[phone] Referring Provider: Rosmery [address], [place], [address]. tel:[phone] INPATIENT CONSULTATION [facility], [facility] [place], [id number], [place] tel:[phone] [facility] No Information 2 9 Joel Rivera. [address] [place], [id number], [place]. tel:[phone] Referring Provider: Matty Spivey, [address], [place], [address]. tel:[phone] Office/outpat ient visit, est [facility], [facility] [place], [place], [id number], [place] tel:[phone] [facility] CAD (chief complaint)Ch ronic diastolic CHF (chief complaint)HT N (chief complaint)NS SUNG (chief complaint)Si ck sinus syndrome (chief complaint)An emia (chief complaint) Type 2 diabetes mellitus without complication sEssential (primary) hypertension Subsequent non-ST elevation (NSTEMI) myocardial infarctionAt hscl heart disease of [place] coronary artery w/o ang pctrsSick sinus syndromeChro suzi diastolic (congestive) heart failurePrese nce of cardiac pacemakerPre sence of coronary angioplasty implant and graftCoronar y angioplasty statusAnemia , unspecifiedS leep apneaChronic kidney disease 9 Joel Rivera. [address] [place], [place], [id number], [place]. tel:[phone] Referring Provider: Lyla Scott, [address] [place] [address], [place], [address]. tel:[phone] Office/outpat ient visit, est [facility], [facility], [place], [id number], [place] tel:[phone] [facility] PMC ER (chief complaint)CA D/ Chronic diastolic CHF (chief complaint)Si ck sinus syndrome/ Renal insufficienc y (chief complaint)HT N/ Hyperlipidem ia (chief complaint)Sl eep apnea/ Gastrointest inal bleeding (chief complaint)Ca rdiovascular Review (chief complaint) Type 2 diabetes mellitus without complication sEssential (primary) hypertension Sleep apneaSubsequ ent non-ST elevation (NSTEMI) myocardial infarctionAt [facility] heart disease of [place] coronary artery w/o ang pctrsSick sinus syndromeChro suzi diastolic (congestive) heart failureChron ic kidney diseaseChest painPresence of cardiac pacemakerPre sence of coronary angioplasty implant and graftCoronar y angioplasty statusAnemia 9 Joel Rivera. [address] [place], [id number], [place]. tel:[phone] Referring Provider: Thompson Mayer, [address], [place], [address]. tel:[phone] INPATIENT CONSULTATION [facility], [facility], [place], [id number], [place] tel:[phone] [facility] No Information 9 Joel Rivera. [address] [place], [id number], [place]. tel:[phone] Referring Provider: Jose Matute, [address] [place] [address] [address], [place], [address]. tel:[phone] Office/outpat ient visit, est [facility], [facility] [place], [place], [id number], [place] tel:[phone] [facility] PMC ER (chief complaint)CA D/ Chronic diastolic CHF (chief complaint)Si ck sinus syndrome/ Chronic renal insufficienc y (chief complaint)HT N/ Hyperlipidem ia (chief complaint)Sl eep apnea (chief complaint)No n-insulin dependent (chief complaint) Type 2 diabetes mellitus without complication sEssential (primary) hypertension Subsequent non-ST elevation (NSTEMI) myocardial infarctionAt hscl heart disease of [place] coronary artery w/o ang pctrsSick sinus syndromeChro suzi diastolic (congestive) heart failureChest painChronic kidney diseasePrese nce of cardiac pacemakerPre sence of coronary angioplasty implant and graftCoronar y angioplasty statusSleep apneaBody mass index (BMI) 38.0-38.9, adult Mar-0 9 Joel Rivera. [address] [place], [id number], [place]. tel:[phone] Referring Provider: Thompson Mayer, [address], [place], [address]. tel:[phone] [facility], [address] [place], [place], [id number], [place] tel:[phone] [facility] No Information 9 Joel Rivera. [address] [place], [id number], [place]. tel:[phone] Referring Provider: Addy Arora, [address] [place], [address]. tel:[phone] INPATIENT CONSULTATION [facility], [address], [place], [id number], [place] tel:[phone] [facility] No Information 9 Son Cantrell. [address] [place], [id number], . tel:[phone] Referring Provider: Addy Arora, [address] [place], [address]. tel:[phone] OFFICE/OUTPAT IENT VISIT, EST [facility], [address], [place], [id number], [place] tel:[phone] [facility] (chief complaint) Hyperlipidem iaSleep apneaEssenti al (primary) hypertension Chronic diastolic (congestive) heart failurePrese nce of cardiac pacemakerCor onary angioplasty statusAthscl heart disease of [place] coronary artery w/o ang pctrsSick sinus syndromeChes t painAnemiaTy pe 2 diabetes mellitus without complication sSubsequent non-ST elevation (NSTEMI) myocardial infarctionBo dy mass index (BMI) 38.0-38.9, adultPresenc e of coronary angioplasty implantAngin aChronic renal insufficienc y Joel Rivera. [address] [place], [place], [id number], [place]. tel:[phone] Referring Provider: Thompson Mayer, [address], [place], [address]. tel:[phone] [facility], [facility] [place], [id number], [place] tel:[phone] [facility] No Information 9 Joel Rivera. [address] [place], [place], [id number], [place]. tel:[phone] Referring Provider: Norman Da Silva, [address], [place], [address]. tel:[phone] INPATIENT CONSULTATION [facility], [facility] [place], [place], [id number], [place] tel:[phone] [facility] No Information 9 Son Cantrell. [address] [place], [id number], [place]. tel:[phone] Referring Provider: Norman Da Silva, [address], [place], [address]. tel:[phone] Office/outpat ient visit, [facility], [address] [place] [address], [id number], tel:[phone] [facility] PMC (chief complaint)HT N/ Diastolic CHF (chief complaint)Hy perlipidemia / Sleep apnea (chief complaint)CA D/ Sick sinus syndrome (chief complaint)Ca rdiac pacemaker/ Coronary angioplasty status (chief complaint) Essential (primary) hypertension Athscl heart disease of [place] coronary artery w/o ang pctrsSick sinus syndromePres ence of cardiac pacemakerCor onary angioplasty statusDisord er of kidneyHyperl ipidemiaSlee p apneaBody mass index (BMI) 40.0-44.9, adultSubsequ ent non-Q wave acute MIChronic diastolic (congestive) heart failureChron ic kidney disease 9 Joel Rivera. [address] [place], [id number], [place]. tel:[phone] Referring Provider: Thompson Mayer, [address], [place], [address]. tel:[phone] [facility], [address] [place] [address], [id number], [place] tel:[phone] [facility] No Information 9 Joel Rivera. [address] [place], [place], [id number], [place]. tel:[phone] Referring Provider: Óscar Mayer, [address] [place], [address]. tel:[phone] INITIAL [facility], [address] [place] [address], [id number], [place] tel:[phone] [facility] No Information 9 Son Cantrell. [address] [place], [id number], [place]. tel:[phone] Referring Provider: Óscar Mayer, [address] [place], [address]. tel:[phone] INPATIENT CONSULTATION [facility], [facility], [place], [id number], [place] tel:[phone] [facility] No Information 9 Son Cantrell. [address] [place], [id number], [place]. tel:[phone] Referring Provider: Jani Ray, [address] [facility], [place], [address]. tel:[phone] Office/outpat ient visit, est [facility], [address] [place] [address], [id number], tel:[phone] [facility] (chief complaint)Ch est pain (chief complaint)Ca rdiovascular Review (chief complaint) Hyperlipidem iaSleep apneaEssenti al (primary) hypertension Athscl heart disease of [place] coronary artery w/o ang pctrsSick sinus syndromeDias tolic CHFPresence of cardiac pacemakerCor onary angioplasty status 8 Son Cantrell. [address] [place], [place], [id number], [place]. tel:[phone] Referring Provider: Óscar Mayer, [address] [place], [address]. tel:[phone] INPATIENT CONSULTATION [facility], [address] [place] [address], [id number], [place] tel:[phone] [facility] No Information 8 Son Cantrell. [address] [place], [id number], [place]. tel:[phone] Referring Provider: Buddy Millan, [address] [facility] [address], [place], [address]. tel:[phone] [facility], [facility] [place], [place], [id number], tel:[phone] [facility] PMC (chief complaint)CH F (chief complaint)HT N (chief complaint)CA D (chief complaint)Re nal insufficienc y (chief complaint)Hy perlipidemia (chief complaint) Hyperlipidem iaEssential (primary) hypertension Athscl heart disease of [place] coronary artery w/o ang pctrsSick sinus syndromePres ence of cardiac pacemakerSle ep apneaCoronar y angioplasty statusDiasto lic CHFRenal insufficienc y 8 Joel Rivera. [address] [place], [place], [id number], [place]. tel:[phone] Referring Provider: Thompson Mayer, [address], [place], [address]. tel:[phone] [facility], [address] [place] [address], [id number], tel:[phone] [facility] No Information Sep-2 8 Son Cantrell. [address] [place], [id number], [place]. tel:[phone] Referring Provider: Maria Luisa Montano, [address] [place] [address], [address]. tel:[phone] [facility], [address] [place] [address], [id number], [place] tel:[phone] [facility] No Information Sep-2 8 Son Cantrell. [address] [place], [id number], [place]. tel:[phone] Referring Provider: Óscar Mayer, [address] [place], [address]. tel:[phone] [facility], [address] [place] [address], [id number], [place] tel:[phone] [facility] No Information Sep-1 8 Joel Rivera. [address] [place], [id number], . tel:[phone] Referring Provider: Miguel Mayer, [address] [place], [address]. tel:[phone] INPATIENT CONSULTATION [facility], [facility] [place], [place], [id number], [place] tel:[phone] [facility] No Information Joel Rivera. [address] [place], [id number], [place]. tel:[phone] Referring Provider: Maria Luisa Montano, [address] [place] [address], [address]. tel:[phone] [facility], [address] [place] [address], [id number], [place] tel:[phone] [facility] CAD (chief complaint)HT N (chief complaint)Hy perlipidemia (chief complaint)Si ck Sinus Syndrome (chief complaint)Ch ronic renal insufficienc y (chief complaint)Ch est Pain (chief complaint) Essential (primary) hypertension Athscl heart disease of [place] coronary artery w/o ang pctrsSick sinus syndromeHype rlipidemiaSl eep apneaDisorde r of kidneyInflam matory liver diseaseOther specified diabetes mellitus with diabetic amyotrophyCo ronary angioplasty statusPresen ce of cardiac pacemaker Joel Rivera. [address] [place], [place], [id number], . tel:[phone] Referring Provider: Miguel Mayer, [address] [place], [address]. tel:[phone] [facility], [address] [place] [address], [id number], [place] tel:[phone] [facility] No Information Joel Rivera. [address] [place], [id number], . tel:[phone] Referring Provider: Miguel Mayer, [address] [place], [address]. tel:[phone] Office/outpat ient visit, est [facility], [address] [place] [address], [id number], [place] tel:[phone] [facility] PMC (chief complaint)Ch est Pain (chief complaint)HT N (chief complaint)Re nal insufficienc y (chief complaint)Si ck sinus syndrome (chief complaint)CA D (chief complaint) Sick sinus syndromeChes t painRenal insufficienc yAthscl heart disease of [place] coronary artery w/o ang pctrsHyperte nsionSleep apneaPresenc e of cardiac pacemakerCor onary angioplasty statusHyperl ipidemiaBody mass index (BMI) 40.0-44.9, adult 8 Joel Rivera. [address] [place], [id number], [place]. tel:[phone] Referring Provider: Miguel Mayer, [address] [place], [address]. tel:[phone] [facility], [facility], [place], [id number], [place] tel:[phone] [facility] Sick sinus syndromeOthe r specified diabetes mellitus with diabetic amyotrophyHe patitisHepat itis C 8 Son Cantrell. [address] [place], [id number], [place]. tel:[phone] INPATIENT CONSULTATION [facility], [address], [place], [id number], [place] tel:[phone] [facility] No Information 8 Joel Rivera. [address] [place], [address], [place]. tel:[phone] Referring Provider: Óscar Edmond, [address] [place], [address]. tel:[phone] OFFICE/OUTPAT IENT CONSULT [facility], [address], [place], [id number], [place] tel:[phone] [facility] No Information 8 Joel Rivera. [address] [place], [id number], [place]. tel:[phone] Referring Provider: Adarsh Hernandez MD, [address] [place] [address], [place], [address]. tel:[phone] [facility], [address] [place] [address], [id number], [place] tel:[phone] [facility] No Information 8 Son Cantrell. [address] [place], [id number], [place]. tel:[phone] Referring Provider: Miguel Mayer, [address] [place], [address]. tel:[phone] [facility] [facility], [address] [place] [address], [id number], [place] tel:[phone] [facility] No Information 8 Joel Rivera. [address] [place], [place], [id number], [place]. tel:[phone] Referring Provider: Vijaya Da Silva, [address], [place], [address]. tel:[phone] [facility], [address] [place] [address], [id number], [place] tel:[phone] [facility] No Information Joel Rivera. [address] [place], [place], [id number], [place]. tel:[phone] Referring Provider: [place] Mcnamara, [address] [place], [address]. tel:[phone] OFFICE/OUTPAT IENT VISIT, NINOSKA [facility], [address] [place] [address], [id number], [place] tel:[phone] [facility] No Information 8 Joel Rivera. [address], [place], [place], [id number], . tel:[phone] Referring Provider: Adarsh Hernandez MD, [address] [place] [address], [id number]. tel:[phone] Family History Family Member Type Diagnosis Age At Onset Problem (finding) Family history of coronary arteriosclerosis Problem (finding) Myocardial infarction Payers Payer name Insurance type Covered alliance party ID Authoriza katerine(s) [facility] [id number] Social History Type Description Quantity Date [...] status post single-chamber pacemaker placement (Medtronic Advisa dual-chamber pacemaker, 09/08/16), coronary artery disease status post PCI to the right coronary artery in March 2016 and again 08/23/18, PCI of the left circumflex artery in 09/2018, and in 03/16/19, successful balloon angioplasty of the proximal and mid right coronary in-stent restenosis presenting for hospital follow-up regarding chest discomfort. Primary channel opener outsoles is Miguel Maldonado. Brilinta was discontinued in October 2018 due to multiple admissions for gastrointestinal bleeding requiring blood transfusions. Patient reports..Social Hx:Family Hx:Cardiac Medications:ECG: End-stage renal disease Chronic diastolic CHF HTN/Hyperlipidemia Anemia PMC ER Chest pain Sleep apnea Diastolic CHF HTN CAD Office visit [facility] 3 month/PMC/Post Hospital PMC Sick sinus syndrome/ Chronic kidney disease Non-Q wave [place]/ CAD Chronic diastolic CHF/ Anemia Hyperlipidemia/ Slee p apnea/ Insulin dependent Anemia Sick sinus syndrome NSTEMI HTN Chronic diastolic CHF CAD PMC ER Patient presents for Post-Hospital for GI bleed (Hgd 8.6 s/p transfusion), primary Lather Apprentice is Dr. Maldonado last seen on 10/15/2018. Pt with medical history of CAD- multi vessel disease with multi prior stents mot recently 08/23/2018 acute non-Q-wave FL s/p stenting distal RCA, balloon angioplasty mid RCA (Dr. Cordoba) with subsequent stenting prox LCX and 2ndOM on 09/20/2018. Pt also with Chronic diastolic CHF, HTN, CKD stage IV- followed up nephrology baseline Cr 3.6, HLD, HANNAH- on CPAP, and DM.Of note-following recent FL 08.23.2018, pt hospitalization 09/16/2017 with acute CHF exacerbation and anemia requiring transfusion prior to repeat LHC with stenting. Again 10/01/2018 hospitalization at [facility] anemia with GI recurrent bleeding Hgb 6.9 s/p transfusion 2U PRBC with prior upper and lower EGD 09/25/2018 with colon polys in situ and diffuse erosive gastritis. 10/30 outpt transfusion. Most recent hospitalization on 11/03/2018 with anemia, GI bleed, requiring repeat transfusion 2 U PRBC and Brilinta being held, pt continue on aspirin 81mg daily alone.Echocardiogram as inpt at [facility] on 10/06/2018: mild concentric LVH, mildly reduced [...] Positive family hx of premature CAD or FL. Father- FL age 55.Social Hx: Tobacco Use: History smoking, quit 2017. Pt denies alcohol and illicit drug use. Sleep apnea/ Gastroi ntestinal bleeding CAD/ Chronic diastolic CHF Cardiovascular Review He [...] no symptoms attributable to valvular heart disease. Sick sinus syndrome/ Renal insufficiency HTN/ Hyperlipidemia CAD/ Chronic diastolic CHF Sick sinus syndrome/ Chronic renal insufficiency HTN/ Hyperlipidemia Sleep apnea Non-insulin dependent [facility] ER Patient presents for PH scheduled follow up at [facility] 10/06/2018, primary Lather Apprentice is Dr. Maldonado last seen on 10/01/2018. Pt with medical history of CAD- multi vessel disease with multi prior stents mot recently s/p stenting distal RCA, balloon angioplasty mid RCA 08/2018, then prox LCX and 2nd PM 09/2018. Pt also with Chronic diastolic CHF, HTN, CKD stage IV- followed up nephrology, HLD, HANNAH- on CPAP, and DM. Post Hospital/[facility] Cardiac pacemaker/ C oronary angioplasty status CAD/ Sick sinus syndrome Hyperlipidemia/ Sleep apnea HTN/ Diastolic CHF [facility] Post Hospital/[facility] Pt present tod for PH [facility] on 06/25/2018 for HTN urgency with chest [...] Sinus Syndrome Chronic renal insufficiency Chest Pain Sick sinus syndrome Renal insufficiency HTN Chest Pain PMC CAD Functional Status Date Functional Assessmen t No Information Instructions Date Instruction Additional Infor henrique Giving encouragement to exercise Related to Body mass index (BMI) 40.0-44.9, adult Lifestyle education regarding di et Related to Body mass index (BMI) 40.0-44.9, adult Hypertension education Related t o Essential (primary) hypertension Dietary needs education (procedu re) Related to Essential (primary) hypertension Giving encouragement to exercise Related to Body mass index (BMI) 38.0-38.9, adult Lifestyle education regarding di et Related to Body mass index (BMI) 38.0-38.9, adult Giving encouragement to exercise Related to Essential (primary) hypertension Giving encouragement to exercise Related to Essential (primary) hypertension Dietary needs education (procedu re) Related to Essential (primary) hypertension Lifestyle education [...] Dates (start - stop) Status Members No Information"
== END ==
LOC: HO.CARD 14:59
PROVIDERS: PCP Internal Medicine; Visit Provider Internal Medicine Cardiovascular Disease
DX: I20.0 Unstable angina (principal)
CPT/HCPCS: 93306

== ENCOUNTER → 2024-10-01 15:01 | Outpatient (BNV) | payer BC, SELFPAY | PROVIDERS: PCP Internal Medicine; Visit Provider Internal Medicine | DX: I51.89 Other ill-defined heart diseases (principal) | CPT/HCPCS: 93306 ==

== ENCOUNTER → 2024-10-09 23:59 | Outpatient (BNV) | payer BC, SELFPAY | PROVIDERS: PCP Internal Medicine; Visit Provider Internal Medicine Cardiovascular Disease | DX: I25.110 Atherosclerotic heart disease of native coronary artery with unstable angina pectoris (principal) | CPT/HCPCS: 92928; 92978; 93458; 99152 ==

== ENCOUNTER 2024-10-17 13:19 | Outpatient (AMB) | payer BC, SELFPAY ==
--- NOTE | 2024-10-17 13:22 | MHC.OFFVIS ---
Vital Signs 10/17/24 13:23 Height 5 ft 10 in Weight 186 lb 15.232 oz BMI 26.8 BP 140/82 H Blood Pressure Location Lt brachial Position Sitting Pulse 71 Pulse Source Pulse Oximeter Intake Visit Reasons: Follow up post cardiac cath [employer] Required: No Accompanied by: Spouse Allergies No Known Allergies [No Known Allergies*] Allergy (Verified 10/20/21 11:15) Medication List - Last Reconciled 10/17/24 by Renetta Naik NP-C aspirin (Ecotrin Low Strength) 81 mg PO DAILY atorvastatin (Lipitor) 40 mg PO DAILY metoprolol succinate ER (Toprol XL) 25 mg PO DAILY ticagrelor (Brilinta) 90 mg PO BID HPI HPI Follow up post cardiac cath: Details: Jed is a 54-year-old male with past medical history of hyperlipidemia who was seen in our office last month and he reported symptoms concerning for crescendo angina. An echocardiogram was done showing low normal EF and wall motion abnormality. 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 Today he reports that he has been feeling much better since the cardiac catheterization procedure. He previously was noting a heartburn type sensation that occurred when he did exertional activities and also periodically at times after eating. He has not had that symptom since his stent was placed. He also was noticing some fatigue and now feels he has more energy. He is not experiencing any chest discomfort at this time. No shortness of breath, PND, orthopnea or edema. No lightheadedness, presyncope, syncope. He has been walking for exercise. He has hold card echo have and is waiting for an appointment. He has been taking all his meds as directed. 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 is present. [facility] Surgical History H/O cardiac catheterization Family History Father CVA (cerebral vascular accident) CAD (coronary artery disease) Mother CAD (coronary artery disease) Social History Alcohol intake: current Alcohol intake frequency: holidays/special occasions only Patient Tobacco Use Status: Never used Tobacco Review of Systems Const All systems reviewed & are unremarkable except as noted in HPI and below Denies chills, Denies fatigue, Denies fever(s), Denies weight gain and Denies weight loss ENT Denies dizziness Card Denies chest pain, Denies leg edema, Denies lightheadedness, Denies palpitations, Denies dyspnea on exertion, Denies orthopnea and Denies other Resp Denies cough and Denies dyspnea on exertion GI Denies hematochezia and Denies change in stool character Musc Denies abnormal gait, Denies muscle weakness, Denies numbness, Denies radiating pain into limb and Denies tingling Neuro Denies abnormal gait, Denies dizziness, Denies numbness and Denies tingling Endo Denies fatigue and Denies palpitations Physical Exam Vital Signs: Last Vital Signs Pulse 71 10/17/24 13:23 BP 140/82 H 10/17/24 13:23 BMI result Body Mass Index 26.8 Const General: cooperative, healthy appearing, comfortable and no acute distress Orientation/consciousness: patient oriented x3 Neck Neck: Yes normal visual inspection and Yes no JVD Resp Effort & Inspection: normal respiratory effort Auscultation: clear to auscultation bilaterally, no crackles, no rales, no rhonchi and no wheezes Cardio Rate: regular rate Rhythm: regular rhythm Heart sounds: S1 normal heart sound present, S2 normal heart sound present, no gallops, no murmurs and no rubs Neuro General: patient oriented x3 Extrem Other: right radial cath site well healed - palpable radial pulse, right hand assessment normal General: Yes normal to inspection, No no pedal edema and No calf tenderness Psych Appearance: grossly normal Mental Status: mental status grossly normal Speech and movement: Normal speech and movement present Assessment & Plan Assessment & Plan (1) CAD (coronary artery disease): Code(s): I25.10 - Atherosclerotic heart disease of [place] coronary artery without angina pectoris Category: Medical Plan: On last visit he reported Symptoms consistent with crescendo angina which led to echocardiogram on 10/01/2024 showing EF 50-55%, apical septal, mid inferior septal and mid anterior septal hypokinesis. His EKG showed sinus rhythm with right bundle branch block, left anterior fascicular block, rate 57. 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 Symptoms improved following stent placement. Spent time at this visit going over catheterization results, diagnosis of coronary artery disease, current med management and answering questions. He will be starting cardiac rehab soon. Continue aspirin indefinitely. Continue Brilinta uninterrupted for 1 year post stent. Continue high-dose atorvastatin with ideal LDL goal less than 70. I have entered order for fasting lipid profile and liver profile, and informed him to obtain in 2 months. Continue metoprolol XL 25 mg daily. Signs and symptoms of angina discussed. Cardiology follow-up in 3-4 months, sooner if needed. 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 Code(s): Z98.890 - Other specified postprocedural states Category: Surgical Plan: Right radial catheterization site well healed (4) Crescendo angina: Code(s): I20.0 - Unstable angina Category: Medical Plan: Resolved post stent Plan Time spent on chart review, documentation, interview and assessment Orders: Orders Lipid Panel 1 Month I25.10 - Atherosclerotic heart disease of [place] coronary artery without angina pectoris Liver Panel 1 Month I25.10 - Atherosclerotic heart disease of [place] coronary artery without angina pectoris Medications: New ticagrelor (Brilinta) 90 mg PO BID 180 tabs 3RF 90 days Refilled aspirin (Ecotrin Low Strength) 81 mg PO DAILY 90 tabs 3RF I20.0 - Unstable angina Coding Level of Care Code Est Pt Level 4 (11995) Complex EM visit Add On G2211 Diagnoses CAD (coronary artery disease) I25.10 Stented coronary artery Z95.5 S/P cardiac cath Z98.890 Crescendo angina I20.0 Time Spent (min) 36
[2024-10-17 13:23] VITALS: BP 140/82; PULSE 71; BMI 26.8
--- OUTSIDE RECORDS SUMMARY | 2024-10-17 14:54 | XMS_ITS | Continuity of Care Document ---
Author Organization [facility] Address [address] [place] [address] Phone Care Team Providers Care Employee Communications Manager Name Role Phone Baljinder BANKS, Herbert Unavailable Unavailable Procedures Procedure Date [facility] Percutaneous Placement Intracoronary Prince nt TTE W/DOPPLER, COMP EMERGENCY DEPT VISIT OFFICE CONSULTATION TTE W/DOPPLER, COMP Advance Directives Directive Yes / No Effective Date File Name No Information Encounters Encounter Description Practice Location Reason(s) For Visit Diagnoses Date Provider Providers Copied on Encounter [facility], [address] , [place], [place], [facility], tel:[phone] [facility] No Information 9 Baljinder Godinez . [address] [place] [address], [id number], . tel:[phone] [address] [place], [place], [facility], tel:[phone] [facility] IP No Information 9 Adalid Portillo. [address] [place] [address], [id number], . tel:[phone] [address] [address] , [place], [place], [facility], tel:[phone] [facility] IP No Information 9 Eliel Esteves. [address] [place] [address], [id number], . tel:[phone] EMERGENCY DEPT VISIT [facility], [address] [place], [place], [facility], tel:[phone] [facility] ER No Information 7 Deepak Jain. [address] [place], [place], [facility], . tel:[phone] OFFICE CONSULTATION [place] [facility], [address], [place], [place], [facility], tel:[phone] [facility] OP No Information 7 Eliel Esteves. [address] [place] [address], [id number], . tel:[phone] [facility], [address] , [place], [place], [facility], tel:[phone] [facility] OBS No Information 7 Amrit Alvarez. [address] [place] [address], [id number], . tel:[phone] Family History Family Member Type Diagnosis Age At Onset No Information Payers Payer name Insurance type Covered alliance party ID Authorjolenea katerine(s) [facility] [id number] Social History Type Description Quantity Date Captured [...]
--- OUTSIDE RECORDS SUMMARY | 2024-10-17 14:55 | XMS_ITS | Continuity of Care Document ---
Author Organization [facility] ter Address [address] [place] [id number]- Care Team Providers Care Manager Solution Name Role Phone Cody Pena MD Primary Care Physician [phone] [id number] Date(s): 10/09/24 - 10/09/[address] [address] Discharge Disposition: A-D/C Home Attending Physician: Chris Pollack MD Admitting Physician: Chris Pollack MD Referring Physician: Chris Pollack MD Encounter Type: Disch Daystay Allergies, Adverse Reactions, Alerts No Known Allergies Medications aspirin 81 mg oral delayed release tablet 81 mg, 1, tablet, By Mouth, Daily, # 30 tablet, Refills 0, Maintenance, 10/09/24 6:49:00 AM EST, Partial fill upon patient request if the prescription is for a schedule II opioid drug. Start Date: 10/09/24 Status: Ordered Quantity: 30.0 Unit: tablet Repeat number: 1 atorvastatin 20 mg oral tablet 1 tablet = 20 mg, By Mouth, Daily, # 30 tablet, 5 Refills, Maintenance, 10/21/12 9:16:12 AM EDT, Tablet, [id number] Start Date: 10/21/12 Status: Ordered Quantity: 30.0 Unit: tablet Repeat number: 6 metoprolol 25 mg oral tablet, extended release 25 mg, 1, tablet, By Mouth, Daily, # 30 tablet, Refills 0, Maintenance, 10/09/24 6:49:00 AM EST, Partial fill upon patient request if the prescription is for a schedule II opioid drug. Start Date: 10/09/24 Status: Ordered Quantity: 30.0 Unit: tablet Repeat number: 1 ticagrelor 90 mg oral tablet 1 tablet = 90 mg, By Mouth, 2 times a day, # 180 tablet, 3 Refills, Maintenance, 10/09/24 9:58:00 AMEST, Tablet, [facility]/pharmacy #[id number], Partial fill upon patient request if the prescription is for a schedule II opioid drug., 117.8, cm, 10/09/24 7:44:00 EST, Height, 86.4, kg, 10/09/24 7:57:00 EST, Dry Weight Start Date: 10/09/24 Status: Ordered Quantity: 180.0 Unit: tablet Repeat number: 4 Problem List Condition Confirmation Course Effective Dates Status Health St atus Informant Severe obesity Confirmed Active Vital Signs Most recent to oldest [Reference Range]: 1 2 3 Height 117.8 cm (10/09/24 7:00 AM) Weight 86.4 kg (10/09/24 7:00 AM) Oxygen Saturation [94-100 %] 96 % (10/09/24 2:00 PM) 96 % (10/09/24 1:30 PM) 96 % (10/09/24 1:00 PM) Pulse Rate [55-90 bpm] 58 bpm (10/09/24 7:00 AM) Body Mass Index [18.5-24.99 kg/m2] 62.26 kg/m2 *>HHI* (10/09/24 7:00 AM) Blood Pressure [90-138/55-84 mm Hg] 133/74mm Hg (10/09/24 2:00 PM) 127/87mm Hg (10/09/24 1:30 PM) 129/80mm Hg (10/09/24 1:00 PM) Respiratory Rate [16-30 br/min] 13 br/min *L* (10/09/24 2:00 PM) 14 br/min *L* (10/09/24 1:30 PM) 14 br/min *L* (10/09/24 1:00 PM) Temperature [96.8-100.4 DegF] 97.3 DegF (10/09/24 7:00 AM) Mode of Delivery (Oxygen) Room air (10/09/24 2:00 PM) Room air (10/09/24 1:30 PM) Room air (10/09/24 1:00 PM) Blood pressure sites Arm, left (10/09/24 2:00 PM) Arm, left (10/09/24 1:30 PM) Arm, left (10/09/24 1:00 PM) Temperature Route Temporal (10/09/24 7:00 AM) Dry Weight 86.4 kg (10/09/24 7:00 AM) Weight Obtained Via Standing scale (10/09/24 7:00 AM) Dry Weight Obtained Via Standing scale (10/09/24 7:00 AM) Note * Event Display: Hemodynamic Procedure Report Authored Date: * Event Display: Hemodynamic Procedure Report Authored Date: * Kait Bundy: PERFORM, SIGN, VERIFY Event Display: Cardiac Rehab Note Authored Date: Patient: DANTE CANTRELL Age: 54 years Sex: Male : 1970 Associated Diagnoses: None Author: Kait Bundy Diagnosis Cardiac Rehab Diagnosis: KIANNA to LAD 10/09/24. Pre-exercise Vitals Vital Signs: 58 HR. Vital Signs Comment: Reviewed in [facility]. Pre-exercise Physical Examination Neurologic: alert & oriented, oriented to (time, person, place). Cardiovascular: heart rate bradycardia. Assistive Devices Assistive Device: None. Patient Education Education: Family present, Written material included, Post procedure guidelines, Stent card reviewed. Education topic Teachback comprehension 75% Topic: Medication education, Role of exercise, Stress management, Home activity guidelines/limits. Reinforcement needed: Medication education, Role of exercise, Stress management, Home activity guidelines/limits. Recommendation and Plan Ambulate: 4-6 times/day. Encourage: All education with family present. Patient may benefit from: All education with family present. Outpatient follow up recommended: [facility], Email referral sent to [facility] . Cardiac Rehab: Will sign off at this time. Recommendation comment: RN notified of plan. * Callie Wynn RN: PERFORM Event Display: Discharge/Transfer Note Hospital Authored Date: [id number] Nursing Discharge Note Entered On: 10/09/2024 15:04 EST Performed On: 10/09/2024 14:50 EST by Callie Wynn RN Nursing Discharge Note 2 Discharge Time : 10/09/2024 14:50 EST Discharge Level of Care at Discharge : Home/Jail/Foster Care Patient Left Unit Via : Wheelchair Patient Accompanied Off Unit with : Responsible adult DC Instructions Provided & Signed by Pt : Yes Patient Understands D/C Instructions : Yes Verbalized Understanding of D/C Plan By : Family, Patient Patient Instructions Discharge Signed : Yes Did Pt have Specialty Bed or Wound Vac : No Callie Wynn RN - 10/09/2024 15:03 EST * Callie Wynn RN: PERFORM Event Display: Patient Education/Instruction Authored Date: [id number] Inpatient Adult Discharge Instructions. [address] [address] Name: DANTE CANTRELL : 1970?? Visit: 10/09/2024 06:29?? Current Date: 10/09/2024 13:19 ?? Account: [id number]?? Inpatient Adult Discharge Instructions We would like to thank you for allowing us to assist you with your healthcare needs. The following includes patient education materials and information regarding your injury/illness. Our entire staffstrives to provide an excellent experience for our patients and their families. PLEASE ENSURE YOU FOLLOW-UP PER THE INSTRUCTIONS BELOW! ?? YOUR OPINION IS IMPORTANT TO US! Please complete the survey you may receive by mail or email. Your feedback will be used to make improvements to the healthcare experiences of our patients and their families. Surveys are administered by [employer] ?? If further treatment with your primary care physician or another doctor is recommended, it is important for you to keep the appointment. Call your primary care physician or return to the Emergency Department immediately if your condition worsens, fails to improve, or new symptoms develop. If you need to find a doctor, you can call [facility] [employer] for a referral at [phone] or toll free at [phone]) or log in to [email or web address].. ?? [facility], in keeping with [facility] guidance, no longer requires face masks for staff, patientsor visitors in most situations. Similiar to time spent indoors at other locations, there is the chance that you were exposed to repiratory viruses during your time with us (such as flu or COVID-19). If you develop symptoms concerning for a viral respiratory infection, please seek testing (and treatment if indicated) from your medical provider or home test kit. ?? You can view and manage your care through the patient portal or by using a health care arielle of your choosing. [employer] is a website that allows you to securely view your medical information including your hospital discharge summary, office visit summaries, medications and follow-up visits. You can also request appointments, renew medications, and request access to your medical information using a health care arielle of your choosing, or just ask a question. You are entitled to know the individuals who participated in your treatment. This information is available within your medical record and will be provided upon your request. You can enroll at [email or web address] or register d uring your next office visit. You have been discharged from [facility], Patient Care Unit: CARE??. If you have any questions regarding these instructions, including results of studies pending, afteryou leave, please call us and we will be happy to assist you 05/03. [facility] Nursing Unit Direct Phone Number, for 05/03 contact and results of studies pending CARE [address] [place] [id number] Your Care Team Attending Physician Chris Pollack MD?? Consulting Providers Chris Pollack MD?? Discharging Providers Chris Pollack MD Tests Performed Below is a partial list of the tests performed during your hospitalization. You may have had other tests and procedures not included in this list. Please discuss all test results with your provider. INR POC Hemochron ACT-LR Type and Screen INR?? POC ACT-LR (POC Hemochron ACT-LR)?? Type and Screen?? Primary Care Provider Cody Pena MD? Advance Directive Health Care Proxy on File No Discharge Vitals Temperature: 97.3 DegF Height: 117.8 cm Pulse Rate: 58 bpm Weight: 86.4 kg Respiratory Rate:??13 br/min??Low Body Mass Index:??62.26 kg/m2??Critical Systolic Blood Pressure: 121 mm Hg Body surface area: 1.68 Diastolic Blood Pressure: 84 mm Hg ?? Oxygen Saturation: 97 % ?? Studies Pending All studies ordered during this hospital stay have been completed unless listed below. Please discuss all pending results with your provider listed above in these instructions. ?? No incomplete studies found?? What to do next Instructions From Your Doctor ?? Orders?? Daystay Protocol, ??10/09/24 9:55:00 EST?? You Need to Schedule the Following Appointments Follow Up with??[facility] When:??Within 1 month Why: Phase 2 cardiac rehab Where: [address] [place] [address]- [phone] Follow Up with??Cody Pena MD When:??In 0 days Where: [address] [place] [address]- [facility] (1) Follow Up with??Dana Odom DDS When:??Within 2 to 3 weeks Discharge Medications DANTE CANTRELL :1970 Visit Date:10/09/2024 Medications: Please continue your medications until treatment is completed or stopped by your provider. Medications not listed below should be discontinued. Discuss any questions related to medications with your provider. What How Much When Instructions Next Dose New Ticagrelor (ticagrelor 90 mg oral tablet) 1 tab(s) Oral Twice a day Refills: 3 Pickup at [facility]/pharmacy #[id number] Take nest dose tonight Unchanged Aspirin (aspirin 81 mg oral delayed release tablet) 1 tab(s) Oral Daily As prescribed Unchanged Atorvastatin (atorvastatin 20 mg oral tablet) 1 tab(s) Oral Daily As prescribed Unchanged Metoprolol (metoprolol 25 mg oral tablet, extended release) 1 tab(s) Oral Daily As prescribed Pharmacy Information [facility]/pharmacy #[id number]: [address], [place] [phone] ?? What How Much When Comments Stop Taking Ibuprofen (ibuprofen 600 mg oral tablet) Oral 3 times a day as needed for Pain , Mild Prescription Given During Visit Ticagrelor (ticagrelor 90 mg oral tablet) - 1 tablet = 90 mg, By Mouth, 2 times a day, # 180 tablet, 3 Refills, [facility]/pharmacy #[id number], [address] [place] [phone]?? Laboratory Results Below is a partial list of the most recent Laboratory test results done prior to this discharge. You may have had other tests and procedures not included in this list. Please discuss all test resultswith your provider. INR (10/09/2024) ???INR - 1.0???Protime (PT) - 10.8 seconds POC Hemochron ACT-LR (10/09/2024) ???POC ACT-LR - 302.0 seconds Type and Screen (10/09/2024) ???Blood Type - B Positive???Antibody Screen - Negative You will be contacted within 72 hours with your results. Allergies (NKA means No Known Allergies) NKA Problems Active Problems??(1) Severe obesity?? Education Materials Below is the list of Educational Leaflet Providered with your Discharge Instructions. [employer] Patient Education - Recovery After Procedural Sedation (Adult)?? [employer] Patient Education - Understanding Transradial Cardiac Catheterization?? [employer] Patient Education - Discharge Instructions for Cardiac Catheterization?? Valuables and Belongings I fully understand and agree that [facility] accepts no responsibility for all my personal property including clothing, toilet articles, radios, jewelry, dentures, hearing aids, rings, money, or any other property that is in my possession or is brought to me after admission. I understand certain valuables may be placed in a hospital safe for a short period of time. I understand that the hospital is not liable for loss or damage due to accident, fire, or other natural occurrence while said property is in the safe. I accept full responsibility for any personal property that I keep with me, and will not hold the hospital responsible in case of loss or disappearance. I acknowledge that i have been encouraged to send valuables and belongings home. ?? Review of Valuable and Belonging List: With patient Review of Valuable and Belonging List: With patient Date for Pt to Sign Valuables/Belongings: 10/09/24 08:32:00 Date for Pt to Sign Valuables/Belongings: 10/09/24 07:44:00 ?? Valuables & Belongings ?? Clothes Electronic devices Jewelry Monetary Items Personal devices Miscellaneous Medications (Valuables) Valuables at Bedside Jacket, Pants, Shirt, Shoes, Undergarments Cell phone Watch ? Valuables Sent Home ? Valuables Sent to Security ? Valuables Sent to Locker ? Other Discharge Information ? Pulmonary Rehab Status?? Pulmonary Rehab Discharge Status?? Respiratory Rate:??13 br/min??Low ? Cardiac Rehab Assessment?? Cardiac Rehab Inpatient Assessment?? Comments-Education: post procedure guidelines Comments-Exercise Activity: phase 2 referral Comments-Nutrition: per RD Comments-Lipids: statins, exercise, diet Patient attending Phase II: Yes Phase II Site of Care: [address] [address] [phone] Common Emergency Awareness Tips IS IT A STROKE? Act FAST and Check for these signs: FACE Does the face look uneven? ARM Does one arm drift down? SPEECH Does their speech sound strange? TIME Call at any sign of stroke ?? Heart Attack Signs Chest discomfort: Most heart attacks involve discomfort in the center of the chest and lasts more than a few minutes, or goes away and comes back. It can feel like uncomfortable pressure, squeezing, fullness or pain. Discomfort in upper body: Symptoms can include pain or discomfort in one or both arms, back, neck, jaw or stomach. Shortness of breath: With or without discomfort. Other signs: Breaking out in a cold sweat, nausea, or lightheaded. Remember, MINUTES DO MATTER. If you experience any of these heart attack warning signs, call to get immediate medical attention! ?? Smoking can increase your chances of developing chronic health problems and can cause harmful effects to other family members in your house. If you smoke, you are strongly encouraged to quit. Please call [employer] at [phone] or [phone] ([phone]) or log in to [email or web address] for referrals to smoking cessation programs. ?? 962 Suicide & Crisis Lifeline is available 05/03 if you or someone you know needs to find a reason to keep living. By calling 254 you'll be connected to a skilled, trained counselor at a crisis center in your area. INPATIENT DISCHARGE INSTRUCTIONS SIGNATURE DANTE HURD Location:[facility] Registration Date and Time:10/09/2024 06:29 EST Primary Care Physician: Cody Pena MD, Attending Physician: Ranjeet BANKS, Chris, I DANTE CANTRELL, have received the above patient education materials/instructions and have verbalized understanding. If ambulance or transport services are being used I further acknowledge being givena choice of service. ?? If you need to contact me, please call me at this number: . Patient/Bobbin Coil Winder Name: Patient/Bobbin Coil Winder Signature: Relationship to Patient: Witness Name/Signature: Date: * Kait Bundy: PERFORM, SIGN, VERIFY Event Display: Patient Education Handout Authored Date: [id number] * Callie Wynn RN: PERFORM Event Display: Patient Education Leaflets Authored Date: [id number] Recovery After Procedural Sedation (Adult) ?? [id number] Recovery After Procedural Sedation (Adult) You have been given medicine by vein to make you sleep during your procedure. This may have included both a pain medicine and sleeping medicine. You may have side effects, such as nausea, fatigue, orunsteadiness for up to 24 hours. You may also feel lightheaded. Home care Follow these guidelines when you get home: ??? For the next 8 or more hours, ask a trusted adult to watch over you. This person should make sure your condition is not getting worse, watch for problems, and keep you safe. ??? Don't drink any alcohol??for the next 24 hours. ??? Don't drive, operate dangerous machinery, or make important business or personal decisions??during the next 24 hours. ??? Take extra care when walking and moving, You may be at a higher risk of falling. ??? Follow any instructions you were given for eating and drinking. ??? Be sure to follow all after-care directions. Note: Your healthcare provider may tell you not to take any medicine by mouth for pain or sleep in the next 4 hours. These medicines may react with the medicines you were given in the hospital. This could cause a much stronger response than usual. ?? Follow-up care Follow up with your healthcare provider as advised. ?? When to seek medical advice Have someone call your healthcare provider or seek medical care right away if any of these occur: ??? Drowsiness gets worse ??? Weakness or dizziness gets worse ??? Repeated vomiting ??? Your speech is slurred, and others cannot understand you. ??? Severe or ongoing pain from the procedure that's not eased by the pain medicine (if prescribed) ??? Fever ??? New rash ?? Call 911 Have someone call 911 if you develop any of these symptoms: ??? Trouble breathing ??? Trouble swallowing ??? Chest pain ??? Loss of consciousness or you can't be awakened ?? Last Reviewed Date: 2023 ?? [id number] [employer]. All rights reserved. This information is not intended as a substitute for professional medical care. Always follow your healthcare professional's instructions. ?? * Callie Wynn RN: PERFORM Event Display: Patient Education Leaflets Authored Date: [id number] Understanding Transradial Cardiac Catheterization ?? 59889 Understanding Transradial Cardiac Catheterization Cardiac catheterization (cardiac cath) is a common, non-surgical procedure. During the procedure, your doctor will insert a long, thin tube (catheter) into an artery and move it up into your heart. Transradial means the catheter is inserted into an artery in the wrist (the radial artery) rather than the groin (the femoral artery). This procedure can be used to diagnose and treat certain heart problems. Why do I need a transradial cardiac cath? You may need a cardiac cath if signs indicate a problem with your heart. These may include: ??? Symptoms of chest pain, tightness, or heaviness (known as angina). This is a common symptom of blocked heart arteries, known as coronary artery disease. ??? Symptoms of weakness, dizziness, trouble breathing, or swollen legs or feet. These may be symptoms of a problem with a heart valve or the heart muscle. ??? Other test results show heart problems. Tests may include stress tests, heart scans, and echocardiography. During a cardiac cath, your doctor can see the condition of the coronary arteries and heart valves.They can also check how well the heart pumps and the flow of blood through the heart. Your doctor can also measure pressures and take blood samples. And, if needed, they can open blocked arteries. This can help reduce symptoms of angina. Cardiac cath is often done using a catheter inserted into an artery in the groin. During transradial cardiac cath, the catheter is inserted into an artery in the wrist. This can mean less bleeding and a faster recovery. Some people may have blockages in the groin arteries as well as in the heart arteries, making it hard to reach the heart. The transradial approach can be used to get around this problem.? What happens during a transradial cardiac cath? The procedure is done in the hospital or a surgery center. First, an IV line is put in your arm or hand to deliver fluids and medicines. You will likely be given medicine to relax you and make you drowsy. When the procedure starts: ??? You lie on an X-ray table. ??? The skin over the insertion sitein your wrist is numbed. ??? The doctor makes a tiny puncture or incision into the artery in the wrist. They then insert a catheter and threads it through the blood vessel into your heart. ? Thedoctor may inject a contrast fluid through the catheter into the arteries. This fluid makes the arteries show up better on X-rays. ??? Tests may be done to check the condition of your heart and arteries. If needed, the doctor can clear blockages in the arteries or do other repairs. ??? When the doctor is finished, they will remove the catheter and put pressure on the site to prevent bleeding. They could use a special device to reduce how long the pressure needs to be on. Or they could use an inflatable band to keep pressure on the site. Nursing staff will gradually reduce the pressure in the band after your procedure. ??? You will stay for a time to recover, and then go home. If this was anemergency procedure, you will likely stay in the hospital at least overnight. ?? What are the risks of transradial cardiac cath? These include: ??? Bleeding, bruising, infection, or blood clots ??? Damage to the radial artery that may cause injury to the hand ??? Nerve damage to the hand ??? Allergic reaction to the contrast fluid ??? Abnormal heartbeat (arrhythmia) ??? Damage to blood vessels or tissues ??? Kidney damage orfailure ??? The need for emergency heart surgery ??? Heart attack, stroke, or ?? Last Reviewed Date: 2021 ?? [id number] [employer]. All rights reserved. This information is not intended as a substitute for professional medical care. Always follow your healthcare professional's instructions. ?? * Callie Wynn RN: PERFORM Event Display: Patient Education Leaflets Authored Date: [id number] Discharge Instructions for Cardiac Catheterization ?? 75255 Discharge Instructions for Cardiac Catheterization Cardiac catheterization??is an invasive??procedure??to look for certain heart problems. These problems may affect the heart's chambers, valves, and blood vessels. A thin, flexible tube (catheter) is put in a blood vessel in your groin or arm. The catheter is moved to the heart. The health care provider can look at the blood flow, blood pressure, and oxygen. They can inject contrast fluid??into your blood. This flows to your heart.??The provider can then take X-rays pictures??of your heart. Coronary angiography is often done as part of a cardiac cath. This looks for blocked areas in the arteries that send blood to the heart. If a blockage is found, your provider may try to open up the artery. They may put a stent in place. Your provider will talk with you about the results of your procedure . Ask any questions you have before you leave. This sheet will help you take care of yourselfat home. Home care ??? Have a responsible adult drive you home after your procedure. ??? Don't drive or makeany important decisions for at least 24 hours after getting any type of sedation or anesthesia.? Drink?? 6 to 8??glasses of water over the next 24 hours. This is to help flush the contrast dye out of your body. Call your health care team if your urine has any change in color. ??? Take your temp erature every day for 3 to 5 days. If you feel cold and clammy or start sweating, take your temperature right away. Call your health care team. ??? Do only light and easy activities for??the next?? 2 to 3??days. Ask for help with chores and errands while you recover. Have someone drive you to your appointments. ??? Don't lift anything heavy??until your health care team says it's safe. ??? Ask your health care team when you can expect to return to work. Unless your job involves lifting, you maybe able to return to your normal activities within 2 days. ??? Take your medicines as directed. Don't skip doses. ??? Check your incisions every day for signs of infection. These include redness, swelling, and fluid leaking. It's normal to have a small bruise or bump where the catheter was put in. A bruise that's getting larger is not normal. Tell your health care team about this. Call your team if you see blood forming in the incision. Go to the emergency room if you have uncontrolled bleedingfrom the artery site. This is even more important if you take medicines that make it hard for your blood to clot. These include aspirin, clopidogrel, prasugrel, and brilinta. ??? Eat a healthy diet. Make sure it's low in fat, salt, and cholesterol. Ask your health care team for diet information. ??? Stop smoking. Sign up for a quit-smoking program. Or ask your health care team for help. ??? Exercise as your health care team tells you to. Your team??may advise you to start a cardiac rehab program. Cardiac rehab is an exercise program where trained health care staff watch your progress and stress on your heart while you exercise. Ask your team how to enroll. ??? Don't swim or take baths untilyour health care team says it???s OK. You can shower the day after the procedure. Keep the site clean and dry. This keeps the incision from getting wet and infected until the skin and artery can heal. ??? Follow all other after-care instructions from your team.? Follow-up care ??? Make a follow-up appointment as advised. It's common to have a follow-up appointment 2 to 4 weeks after an angioplasty or coronary stent procedure. ??? Make a yearly appointment. This is??to make sure you're still doing well and not having any new symptoms. ??? Don't wait for a follow-up appointment if your medicines aren't working or you're having heart-related symptoms. Call your provider. ?? When to contact your doctor Contact your provider right away if: ??? You have severe or increasing pain, numbness, coldness, ora bluish color in the leg or arm that held the catheter. ??? You have a fever of 100.4?? F??( 38??C) or higher, or as advised by your provider. ??? There are signs of infection at the incision site. These include redness, swelling, drainage, or warmth. ??? There is bleeding, bruising, or a lot of??swelling where the catheter was inserted. ??? You have blood in your urine. ??? Your stools are black or tarry. ??? You have any unusual bleeding. ??? Your heartbeat is irregular, very slow, or fast. ??? You are dizzy. ?? Call 911 Call 911 if: ??? You have chest pain. ??? You are short of breath. ??? You feel sudden numbness or weakness in arms, legs, or face, or have trouble speaking. ??? The puncture site swells up very fast. ??? You have bleeding from the puncture site that doesn't slow down with firm pressure. ?? Last Reviewed Date: 2024 ?? [id number] [employer]. All rights reserved. This information is not intended as a substitute for professional medical care. Always follow your healthcare professional's instructions. ?? History and physical note * Event Display: History and Physical Hospital Authored Date: * Event Display: History and Physical Hospital Authored Date: EKG study * Event Display: ECG 12-Lead Authored Date: Please click on pdf link to open report * Event Display: ECG 12-Lead Authored Date: Ventricular Rate: 52 BPM Atrial Rate: 52 BPM P-R Interval: 210 ms QRS Duration: 152 ms Q-T Interval: 446 ms QTC Calculation(Bazett): 414 ms P [place]: 22 degrees R [place]: -40 degrees T [place]: 26 degrees Sinus bradycardia with 1st degree A-V block Left axis deviation Right bundle branch block Anterior infarct , age undetermined Abnormal ECG When compared with ECG of 09-Oct-2024 10:09, Anterior infarct is now Present Confirmed by Robert Castellon ([id number]) on 10/09/2024 2:06:45 PM [place]: Robert Castellon * Event Display: ECG 12-Lead Authored Date: Please click on pdf link to open report * Event Display: ECG 12-Lead Authored Date: Ventricular Rate: 52 BPM Atrial Rate: 52 BPM P-R Interval: 202 ms QRS Duration: 152 ms Q-T Interval: 440 ms QTC Calculation(Bazett): 409 ms P [place]: 41 degrees R [place]: -42 degrees T [place]: 49 degrees Sinus bradycardia Left axis deviation Right bundle branch block Abnormal ECG When compared with ECG of 09-Oct-2024 06:56, Minimal criteria for Anterior infarct are no longer Present Confirmed by Robert Castellon ([id number]) on 10/09/2024 12:13:01 PM [place]: Robert Castellon * Event Display: ECG 12-Lead Authored Date: Please click on pdf link to open report * Event Display: ECG 12-Lead Authored Date: Ventricular Rate: 58 BPM Atrial Rate: 58 BPM P-R Interval: 198 ms QRS Duration: 166 ms Q-T Interval: 454 ms QTC Calculation(Bazett): 445 ms P [place]: 33 degrees R [place]: -51 degrees T [place]: 30 degrees Sinus bradycardia Left axis deviation Right bundle branch block Anterior infarct , age undetermined Abnormal ECG When compared with ECG of 15-Apr-2012 14:22, QRS axis Shifted left Anterior infarct is now Present T wave inversion now evident in Anterior leads Confirmed by BERNARD VELARDE MD ([id number]) on 10/10/2024 7:50:27 AM [place]: BERNARD VELARDE MD Patient Care team information Care Team Personnel Name: Cody Pena MD Position: [facility] Outreach Member Role: PCP Address: [address] [place] [address] Cody Jean BANKS [address] Telecom: Care Team Related Persons Name: WILIAM CANTRELL Insurance Providers Guarantor name: TYLER Health Plan Information #: 1 Payer: [employer] Member Number: [id number] Policy Number: NA Group Number: [id number] Health Plan Information #: 2 Payer: [employer] Member Number: [id number] Policy Number: NA Group Number: NA
--- OUTSIDE RECORDS SUMMARY | 2024-10-17 14:55 | XMS_ITS | Continuity of Care Document ---
Author Organization [employer] Address [address] [place] [address] Phone Care Team Providers Care Accelerator Systems Director Name Role Phone Levi Gale MD Unavailable [...] Copied on Encounter [facility], [address] [place] [address], [id number], tel:[phone] [facility] No Information 1 Baljinder Sims. [address] [place] [address], [id number], . tel:[phone] [facility], [address] [place] [address], [id number], tel:[phone] [facility] No Information 1 Son Cantrell. [address] [place], [id number], . tel:[phone] [facility], [address] [place] [address], [address] [place] [address], tel:[phone] [facility] No Information 0 Moncho Schumacher. [address], [place], [place], [facility], [place]. tel:[phone] [facility], [address] [place] [address], [address] [place] [address], tel:[phone] [facility] No Information 0 Joel Rivera. [address] [place], [address] [place] [address], . tel:[phone] Referring Provider: Miguel Mayer, [address] [place], [address]. tel:[phone] [facility], [address] [place] [address], [address] [place] [address], tel:[phone] [facility] No Information 0 Joel Rivera. [address] [place], [address] [place] [address], . tel:[phone] [facility], [address] [place] [address], [id number], tel:[phone] [place] PMC- ER (chief complaint)Ch est pain (chief complaint) AnemiaType 2 diabetes mellitus without complication sMixed hyperlipidem iaSleep apneaEssenti al (primary) hypertension Subsequent non-ST elevation (NSTEMI) myocardial infarctionAt hscl heart disease of [place] coronary artery w/o ang pctrsSick sinus syndromeChro suzi diastolic (congestive) heart failureEnd stage renal diseaseChest painBody mass index (BMI) 40.0-44.9, adultPresenc e of cardiac pacemakerPre sence of coronary angioplasty implant and graftPersona l history of nicotine dependence 0 Son Cantrell. [address] [place], [place], [id number], . tel:[phone] Referring Provider: Miguel Mayer, [address] [place], [address]. tel:[phone] [facility], [address] [place] [address], [id number], [place] tel:[phone] [place] PMC ER (chief complaint)Ch est pain (chief complaint)En d-stage renal disease (chief complaint)Ch ronic diastolic CHF (chief complaint)HT N/Hyperlipid emia (chief complaint)An emia (chief complaint) Type 2 diabetes mellitus without complication sMixed hyperlipidem iaEssential (primary) hypertension Subsequent non-ST elevation (NSTEMI) myocardial infarctionAt hs[facility] heart disease of [place] coronary artery w/o ang pctrsSick sinus syndromeChro suzi diastolic (congestive) heart failureBody mass index (BMI) 40.0-44.9, adultPresenc e of cardiac pacemakerAne miaChest painSleep apneaEnd stage renal diseasePrese nce of coronary angioplasty implant and graft 0 Joel Rivera. [address] [place], [id number], [place]. tel:[phone] [facility], [address] [place] [address], [id number], [place] tel:[phone] [facility] No Information 0 Joel Rivera. [address] [place], [id number], [place]. tel:[phone] [facility], [address] [place] [address], [id number], [place] tel:[phone] [facility] No Information 0 Joel Rivera. [address] [place], [id number], [place]. tel:[phone] Referring Provider: Thompson Bhatt, [address] [place], [address]. tel:[phone] OFFICE/OUTPAT IENT CONSULT [facility], [address] [place] [address], [id number], [place] tel:[phone] [facility] No Information 0 Joel Rivera. [address] [place], [id number], [place]. tel:[phone] Referring Provider: Thompson Bhatt, [address], [place], [address]. tel:[phone] Office/outpat ient visit, [facility], [facility] [place], [place], [id number], [place] tel:[phone] [facility] Office visit (chief complaint)CA D (chief complaint)HT N (chief complaint)Di astolic CHF (chief complaint)Sl eep apnea (chief complaint) Essential (primary) hypertension Subsequent non-ST elevation (NSTEMI) myocardial infarctionAt hscl heart disease of [place] coronary artery w/o ang pctrsSick sinus syndromeChro suzi diastolic (congestive) heart failureAnemi aSleep apneaMixed hyperlipidem iaChronic kidney diseaseType 2 diabetes mellitus without complication sBody mass index (BMI) 40.0-44.9, adultPresenc e of cardiac pacemakerPre sence of coronary angioplasty implant and graft 9 Joel Rivera. [address] [place], [id number], [place]. tel:[phone] Referring Provider: Miguel Mayer, [address] [place], [address]. tel:[phone] [facility], [address] [place] [address], [id number], [place] tel:[phone] [facility] No Information 9 Joel Rivera. [address] [place], [id number], [place]. tel:[phone] Referring Provider: Miguel Mayer, [address] [place], [address]. tel:[phone] Office/outpat ient visit, [facility], [address], [place], [id number], [place] tel:[phone] [place] 3 month/P[facility] (chief complaint) C (chief complaint) Essential (primary) hypertension Subsequent non-ST elevation (NSTEMI) [facility] infarctionAt [facility] heart disease of [place] coronary artery w/o ang pctrsChronic diastolic (congestive) heart failureSick sinus syndromeAnem iaPresence of cardiac pacemakerPre sence of coronary angioplasty implant and graftSleep apneaType 2 diabetes mellitus without complication sHyperlipide miaChronic kidney diseasePerso nal history of nicotine dependenceBo dy mass index (BMI) 40.0-44.9, adult Aug- 9 Joel Rivera. [address] [place], [place], [id number], [place]. tel:[phone] Referring Provider: Miguel Mayer, [address] [place], [address]. tel:[phone] [facility], [address] [place] [address], [id number], [place] tel:[phone] [facility] PMC (chief complaint)No n-Q wave [place]/ CAD (chief complaint)Ch ronic diastolic CHF/ Anemia (chief complaint)Hy perlipidemia / Sleep apnea/ Insulin dependent (chief complaint)Si ck sinus syndrome/ Chronic kidney disease (chief complaint) Type 2 diabetes mellitus without complication sSleep apneaAnemiaE ssential (primary) hypertension Subsequent non-ST elevation (NSTEMI) [facility] heart disease of [place] coronary artery w/o ang pctrsSick sinus syndromeChro suzi diastolic (congestive) heart failureChron ic kidney diseasePrese nce of cardiac pacemakerPre sence of coronary angioplasty implant and graftCoronar y angioplasty status 9 Joel Rivera. [address] [place], [id number], [place]. tel:[phone] SUBSEQUENT HOSPITAL CARE [facility], [address] [place] [address], [id number], [place] tel:[phone] [facility] No Information 9 Moncho Schumacher. [address], , [place], [address], [place]. tel:[phone] Referring Provider: Rosmery [address]ang [address], [place], [address]. tel:[phone] SUBSEQUENT HOSPITAL CARE [facility], [facility] [place], [place], [id number], tel:[phone] [facility] No Information 8201 9 Son Cantrell. [address] [place], [id number], [place]. tel:[phone] Referring Provider: [address], [place], [address]. tel:[phone] CRITICAL CARE, FIRST HOUR [facility], [address] [place] [address], [id number], [place] tel:[phone] [facility] No Information 201 9 Joel Miguel. [address] [place], [id number], [place]. tel:[phone] Referring Provider: Rosmer[address], [place], [address]. tel:[phone] INPATIENT CONSULTATION [facility], [facility] [place], [id number], [place] tel:[phone] [facility] No Information 2 9 Joel Rviera. [address] [place], [id number], [place]. tel:[phone] Referring Provider: Matty Spivey, [address], [place], [address]. tel:[phone] Office/outpat ient visit, est [facility], [facility] [place], [id number], [place] tel:[phone] [facility] CAD (chief complaint)Ch ronic diastolic CHF (chief complaint)HT N (chief complaint)NS SUNG (chief complaint)Si ck sinus syndrome (chief complaint)An emia (chief complaint) Type 2 diabetes mellitus without complication sEssential (primary) hypertension Subsequent non-ST elevation (NSTEMI) myocardial infarctionAt [facility] heart disease of [place] coronary artery w/o ang pctrsSick sinus syndromeChro suzi diastolic (congestive) heart failurePrese nce of cardiac pacemakerPre sence of coronary angioplasty implant and graftCoronar y angioplasty statusAnemia , unspecifiedS leep apneaChronic kidney disease 9 Joel Rivera. [address] [place], [id number], [place]. tel:[phone] Referring Provider: Lyla Scott, [address] [place] [address], [place], [address]. tel:[phone] Office/outpat ient visit, est [facility], [facility], [id number], [place] tel:[phone] [place] PMC ER (chief complaint)CA D/ Chronic diastolic CHF (chief complaint)Si ck sinus syndrome/ Renal insufficienc y (chief complaint)HT N/ Hyperlipidem ia (chief complaint)Sl eep apnea/ Gastrointest inal bleeding (chief complaint)Ca rdiovascular Review (chief complaint) Type 2 diabetes mellitus without complication sEssential (primary) hypertension Sleep apneaSubsequ ent non-ST elevation (NSTEMI) myocardial infarctionAt [facility] heart disease of [place] coronary artery w/o ang pctrsSick sinus syndromeChro suzi diastolic (congestive) heart failureChron ic kidney diseaseChest painPresence of cardiac pacemakerPre sence of coronary angioplasty implant and graftCoronar y angioplasty statusAnemia 9 Joel Rivera. [address] [place], [id number], [place]. tel:[phone] Referring Provider: Thompson Mayer, [address], [place], [address]. tel:[phone] INPATIENT CONSULTATION [facility], [facility], [id number], [place] tel:[phone] [facility] No Information 9 Joel Rivera. [address] [place], [place], [id number], [place]. tel:[phone] Referring Provider: Jose Matute, [address] [place] [address] [address], [place], [address]. tel:[phone] Office/outpat ient visit, est [facility], [facility] [place], [id number], [place] tel:[phone] [facility] PMC ER (chief complaint)CA D/ Chronic diastolic CHF (chief complaint)Si ck sinus syndrome/ Chronic renal insufficienc y (chief complaint)HT N/ Hyperlipidem ia (chief complaint)Sl eep apnea (chief complaint)No n-insulin dependent (chief complaint) Type 2 diabetes mellitus without complication sEssential (primary) hypertension Subsequent non-ST elevation (NSTEMI) myocardial infarctionAt [facility] heart disease of [place] coronary artery w/o ang pctrsSick sinus syndromeChro suzi diastolic (congestive) heart failureChest painChronic kidney diseasePrese nce of cardiac pacemakerPre sence of coronary angioplasty implant and graftCoronar y angioplasty statusSleep apneaBody mass index (BMI) 38.0-38.9, adult Mar-0 9 Joel Rivera. [address] [place], [id number], [place]. tel:[phone] Referring Provider: Thompson Mayer, [address], [place], [address]. tel:[phone] SUBSEQUENT HOSPITAL CARE [facility], [address] [place], [place], [id number], [place] tel:[phone] [facility] No Information 9 Joel Rivera. [address] [place], [id number], [place]. tel:[phone] Referring Provider: Addy Arora, [address] [place], [address]. tel:[phone] INPATIENT CONSULTATION [facility], [address], [place], [id number], [place] tel:[phone] [facility] No Information 9 Son Cantrell. [address] [place], [id number], . tel:[phone] Referring Provider: Addy Arora, [address] [place], [address]. tel:[phone] OFFICE/OUTPAT IENT VISIT, EST [facility], [address], [place], [id number], [place] tel:[phone] [place] (chief complaint) Hyperlipidem iaSleep apneaEssenti al (primary) hypertension Chronic diastolic (congestive) heart failurePrese nce of cardiac pacemakerCor onary angioplasty statusAthscl heart disease of [place] coronary artery w/o ang pctrsSick sinus syndromeChes t painAnemiaTy pe 2 diabetes mellitus without complication sSubsequent non-ST elevation (NSTEMI) myocardial infarctionBo dy mass index (BMI) 38.0-38.9, adultPresenc e of coronary angioplasty implantAngin aChronic renal insufficienc y Joel Rivera. [address] [place], [place], [id number], [place]. tel:[phone] Referring Provider: Thompson Mayer, [address], [place], [address]. tel:[phone] SUBSEQUENT HOSPITAL CARE [facility], [facility] [place], [place], [id number], [place] tel:[phone] [facility] No Information 9 Joel Rivera. [address] [place], [id number], [place]. tel:[phone] Referring Provider: Norman Da Silva, [address], [place], [address]. tel:[phone] INPATIENT CONSULTATION [facility], [facility] [place], [id number], [place] tel:[phone] [facility] No Information 9 Son Cantrell. [address] [place], [id number], [place]. tel:[phone] Referring Provider: Norman Da Silva, [address], [place], [address]. tel:[phone] Office/outpat ient visit, [facility], [address] [place] [address], [id number], tel:[phone] [facility] PMC (chief complaint)HT N/ Diastolic CHF (chief complaint)Hy perlipidemia / Sleep apnea (chief complaint)CA D/ Sick sinus syndrome (chief complaint)Ca rdiac pacemaker/ Coronary angioplasty status (chief complaint) Essential (primary) hypertension Athscl heart disease of [place] coronary artery w/o ang pctrsSick sinus syndromePres ence of cardiac pacemakerCor onary angioplasty statusDisord er of kidneyHyperl ipidemiaSlee p apneaBody mass index (BMI) 40.0-44.9, adultSubsequ ent non-Q wave acute MIChronic diastolic (congestive) heart failureChron ic kidney disease 9 Joel Rivera. [address] [place], [id number], [place]. tel:[phone] Referring Provider: Thompson Mayer, [address], [place], [address]. tel:[phone] SUBSEQUENT HOSPITAL CARE [facility], [address] [place] [address], [id number], [place] tel:[phone] [facility] No Information 9 Joel Rivera. [address] [place], [place], [id number], [place]. tel:[phone] Referring Provider: Óscar Mayer, [address] [place], [address]. tel:[phone] INITIAL [facility], [address] [place] [address], [id number], [place] tel:[phone] [facility] No Information 9 Son Cantrell. [address] [place], [id number], [place]. tel:[phone] Referring Provider: Óscar Mayer, [address] [place], [address]. tel:[phone] INPATIENT CONSULTATION [facility], [facility], [place], [id number], [place] tel:[phone] [facility] No Information 9 Son Cantrell. [address] [place], [id number], [place]. tel:[phone] Referring Provider: Jani Ray, [address] [facility], [place], [address]. tel:[phone] Office/outpat ient visit, est [facility], [address] [place] [address], [id number], tel:[phone] [place] (chief complaint)Ch est pain (chief complaint)Ca rdiovascular Review (chief complaint) Hyperlipidem iaSleep apneaEssenti al (primary) hypertension Athscl heart disease of [place] coronary artery w/o ang pctrsSick sinus syndromeDias tolic CHFPresence of cardiac pacemakerCor onary angioplasty status 8 Son Cantrell. [address] [place], [place], [id number], [place]. tel:[phone] Referring Provider: Óscar Mayer, [address] [place], [address]. tel:[phone] INPATIENT CONSULTATION [facility], [address] [place] [address], [id number], [place] tel:[phone] [facility] No Information 8 Son Cantrell. [address] [place], [id number], [place]. tel:[phone] Referring Provider: Buddy Millan, [address] [facility] [address], [place], [address]. tel:[phone] [facility], [facility] [place], [place], [id number], tel:[phone] [facility] PMC (chief complaint)CH F (chief complaint)HT N (chief complaint)CA D (chief complaint)Re nal insufficienc y (chief complaint)Hy perlipidemia (chief complaint) Hyperlipidem iaEssential (primary) hypertension Athscl heart disease of [place] coronary artery w/o ang pctrsSick sinus syndromePres ence of cardiac pacemakerSle ep apneaCoronar y angioplasty statusDiasto lic CHFRenal insufficienc y 8 Joel Rivera. [address] [place], [place], [id number], [place]. tel:[phone] Referring Provider: Thompson Mayer, [address], [place], [address]. tel:[phone] [facility], [address] [place] [address], [id number], tel:[phone] [facility] No Information Sep-2 8 Son Cantrell. [address] [place], [id number], [place]. tel:[phone] Referring Provider: Maria Luisa Montano, [address] [place] [address], [address]. tel:[phone] [facility], [address] [place] [address], [id number], [place] tel:[phone] [facility] No Information Sep-2 8 Son Cantrell. [address] [place], [id number], [place]. tel:[phone] Referring Provider: Óscar Mayer, [address] [place], [address]. tel:[phone] [facility], [address] [place] [address], [id number], [place] tel:[phone] [facility] No Information Sep-1 8 Joel Rivera. [address] [place], [id number], . tel:[phone] Referring Provider: Miguel Mayer, [address] [place], [address]. tel:[phone] INPATIENT CONSULTATION [facility], [facility] [place], [place], [id number], [place] tel:[phone] [facility] No Information Joel Rivera. [address] [place], [place], [id number], [place]. tel:[phone] Referring Provider: Maria Luisa Montano, [address] [place] [address], [address]. tel:[phone] [facility], [address] [place] [address], [id number], [place] tel:[phone] [facility] CAD (chief complaint)HT N (chief complaint)Hy perlipidemia (chief complaint)Si ck Sinus Syndrome (chief complaint)Ch ronic renal insufficienc y (chief complaint)Ch est Pain (chief complaint) Essential (primary) hypertension Athscl heart disease of [place] coronary artery w/o ang pctrsSick sinus syndromeHype rlipidemiaSl eep apneaDisorde r of kidneyInflam matory liver diseaseOther specified diabetes mellitus with diabetic amyotrophyCo ronary angioplasty statusPresen ce of cardiac pacemaker Joel Rivera. [address] [place], [place], [id number], . tel:[phone] Referring Provider: Miguel Mayer, [address] [place], [address]. tel:[phone] [facility], [address] [place] [address], [id number], [place] tel:[phone] [facility] No Information Joel Rivera. [address] [place], [id number], . tel:[phone] Referring Provider: Miguel Mayer, [address] [place], [address]. tel:[phone] Office/outpat ient visit, est [facility], [address] [place] [address], [id number], [place] tel:[phone] [place] PMC (chief complaint)Ch est Pain (chief complaint)HT N (chief complaint)Re nal insufficienc y (chief complaint)Si ck sinus syndrome (chief complaint)CA D (chief complaint) Sick sinus syndromeChes t painRenal insufficienc yAthscl heart disease of [place] coronary artery w/o ang pctrsHyperte nsionSleep apneaPresenc e of cardiac pacemakerCor onary angioplasty statusHyperl ipidemiaBody mass index (BMI) 40.0-44.9, adult 8 Joel Rivera. [address] [place], [id number], [place]. tel:[phone] Referring Provider: Miguel Mayer, [address] [facility] [place], [address]. tel:[phone] [facility], [facility] [place], [place], [id number], [place] tel:[phone] [facility] Sick sinus syndromeOthe r specified diabetes mellitus with diabetic amyotrophyHe patitisHepat itis C 8 Son Cantrell. [address] [place], [id number], [place]. tel:[phone] INPATIENT CONSULTATION [facility], [address], [place], [id number], [place] tel:[phone] [facility] No Information 8 Joel Rivera. [address] [place], [id number], [place]. tel:[phone] Referring Provider: Óscar Edmond, [address] [place], [address]. tel:[phone] OFFICE/OUTPAT IENT CONSULT [facility], [address], [place], [id number], [place] tel:[phone] [facility] No Information 8 Joel Rivera. [address] [place], [id number], [place]. tel:[phone] Referring Provider: Adarsh Hernandez MD, [address] [place] [address], [place], [address]. tel:[phone] [facility], [address] [place] [address], [id number], [place] tel:[phone] [facility] No Information 8 Son Cantrell. [address] [place], [id number], [place]. tel:[phone] Referring Provider: Miguel Mayer, [address] [place], [address]. tel:[phone] INITIAL HOSPITAL CARE [facility], [address] [place] [address], [id number], [place] tel:[phone] [facility] No Information 8 Joel Rivera. [address] [place], [place], [id number], [place]. tel:[phone] Referring Provider: Vijaya Da Silva, [address], [place], [address]. tel:[phone] [facility], [address] [place] [address], [id number], [place] tel:[phone] [facility] No Information Joel Rivera. [address] [place], [id number], [place]. tel:[phone] Referring Provider: Dixie Mcnamara, [address] [place], [address]. tel:[phone] OFFICE/OUTPAT IENT VISIT, [facility], [address] [place] [address], [id number], [place] tel:[phone] [facility] No Information 8 Joel Rivera. [address], [place], [place], [id number], . tel:[phone] Referring Provider: Adarsh Hernandez MD, [address] [place] [address], [id number]. tel:[phone] Family History Family Member Type Diagnosis Age At Onset Problem (finding) Family history of coronary arteriosclerosis Problem (finding) Myocardial infarction Payers Payer name Insurance type Covered green party ID Authoriza katerine(s) [facility] [id number] Social History Type Description Quantity Date Captured Comments Sex Male Smoking Status No Information Chief Complaint And Reason For Visit No Information Reason For Referral Reason For Referral No Information Plan Of Treatment Date Type Action Status Goal Tobacco cessation counseling completed Goal Tobacco [...] Goal Lifestyle education regardin g diet completed Patient Education DASH Diet: Care Instruc [...] for hospital follow-up regarding chest discomfort. Primary sql report developer is Miguel Maldonado. Brilinta was discontinued in October 2018 due to multiple admissions for gastrointestinal bleeding requiring blood transfusions. Patient reports..Social Hx:Family Hx:Cardiac Medications:ECG: End-stage renal disease Chronic diastolic CHF HTN/Hyperlipidemia Anemia PMC ER Chest pain Sleep apnea Diastolic CHF HTN CAD Office visit [facility] 3 month/PMC/Post Hospital PMC Non-Q wave [place]/ CAD Chronic diastolic CHF/ Anemia Hyperlipidemia/ Slee p apnea/ Insulin dependent Sick sinus syndrome/ Chronic kidney disease Anemia Sick sinus syndrome NSTEMI HTN Chronic diastolic CHF CAD Cardiovascular Review He has had no chest discomfort suggestive of ischemia. The patient denies orthopnea, PND, TYSON, or edema. Mr. Wood has not had palpitations, syncope or near syncope. He denies claudication. There is no discoloration or ulceration of the lower extremities. He has had no TIA or stroke-like symptoms. The patient has no symptoms attributable to valvular heart disease. [facility] ER Patient presents for Post-Hospital for GI bleed (Hgd 8.6 s/p transfusion), primary Telecommunications Field Technician is Dr. Maldonado last seen on 10/15/2018. Pt with medical history of CAD- multi vessel disease with multi prior stents mot recently 08/23/2018 acute non-Q-wave NJ s/p stenting distal RCA, balloon angioplasty mid RCA (Dr. Cordoba) with subsequent stenting prox LCX and 2ndOM on 09/20/2018. Pt also with Chronic diastolic CHF, HTN, CKD stage IV- followed up nephrology baseline Cr 3.6, HLD, HANNAH- on CPAP, and DM.Of note-following recent [place] 08.23.2018, pt hospitalization 09/16/2017 with acute CHF exacerbation and anemia requiring transfusion prior to repeat LHC with stenting. Again 10/01/2018 hospitalization at [facility] anemia with GI recurrent bleeding Hgb 6.9 s/p transfusion 2U PRBC with prior upper and lower EGD 09/25/2018 with colon polys in situ and diffuse erosive gastritis. 10/30 outpt transfusion. Most recent hospitalization on 11/03/2018 with anemia, GI bleed, requiring repeat transfusion 2 U PRBC and Brilinta being held, pt continue on aspirin 81mg daily alone.Echocardiogram as inpt at [facility] on 10/06/2018: mild concentric LVH, mildly reduced [...] Positive family hx of premature CAD or NJ. Father- NJ age 55.Social Hx: Tobacco Use: History smoking, quit 2017. Pt denies alcohol and illicit drug use. CAD/ Chronic diastolic CHF Sick sinus syndrome/ Renal insufficiency HTN/ Hyperlipidemia Sleep apnea/ Gastroi ntestinal bleeding [facility] ER Patient presents for PH scheduled follow up at [facility] 10/06/2018, primary Telecommunications Field Technician is Dr. Maldonado last seen on 10/01/2018. Pt with medical history of CAD- multi vessel disease with multi prior stents mot recently s/p stenting distal RCA, balloon angioplasty mid RCA 08/2018, then prox LCX and 2nd PM 09/2018. Pt also with Chronic diastolic CHF, HTN, CKD stage IV- followed up nephrology, HLD, HANNAH- on CPAP, and DM. CAD/ Chronic diastolic CHF Sick sinus syndrome/ Chronic renal insufficiency HTN/ Hyperlipidemia Sleep apnea Non-insulin dependent Post Hospital/[facility] HTN/ Diastolic CHF Hyperlipidemia/ Sleep apnea CAD/ Sick sinus syndrome Cardiac pacemaker/ C oronary angioplasty status Post Hospital/[facility] Pt present tod for PH [facility] on 06/25/2018 for HTN urgency with chest [...] with TWI inferior leads- UNCHANGED from previous. Cardiovascular Review He has had no chest discomfort suggestive of ischemia. The patient denies orthopnea, PND, TYSON, or edema. Mr. Kumari has not had palpitations, syncope or near syncope. He denies claudication. There is no discoloration or ulceration of the lower extremities. He has had no TIA or stroke-like symptoms. The patient has no symptoms attributable to valvular heart disease. Chest pain CAD HTN CHF PMC Hyperlipidemia Renal insufficiency Chronic renal insufficiency Chest Pain Sick Sinus Syndrome Hyperlipidemia HTN CAD PMC Chest Pain HTN Renal insufficiency Sick sinus syndrome CAD Functional Status Date Functional Assessmen t No Information Instructions Date Instruction Additional Infor henrique Lifestyle education regarding di et Related to [...] education Related t o Essential (primary) hypertension Hypertension education Related t [...]
--- OUTSIDE RECORDS SUMMARY | 2024-10-17 14:55 | XMS_ITS | Continuity of Care Document ---
Author Organization [facility] Address [address] [place] [phone] Phone Care Team Providers Care Reflector Driller And Deburrer Name Role Phone Wellington Yo MD Unavailable [...] Providers Copied on Encounter OFFICE CONSULTATION (ESTABLISHED) [facility], [address], [id number] , tel:[phone] [place] allergy symptoms (chief complaint) Adverse effect of drug/meds/biol subst, subsAtopic dermatitis, unspecifiedChronic rhinitisShortness of breath 7 Srinath Lemus [address] [facility] [place], [place], [id number] , . tel:[phone] Referring Provider: Hilda Zhang si, [address], [address] [facility] [place], [address]. tel:[phone] Family History Family Member Type Diagnosis Age At Onset No Information Immunizations Vaccine Date Status Comments Influenza 3 years or older administered S ource: Other Provider Payers Payer name Insurance type Covered green party ID Paul garcias(s) [employer] [facility] [id number] Social History Type Description Quantity Date Captured [...] his extremities. Says he passed out on Wilson Dina and was placed on Holter monitor. [...] on Plavix and could not speak in Italian but could communicate in other languages. He is still on ASA, increased to 325mg from 81mg. Stopped long-acting insulin but continues on Novolog. On anti-GERD medication. 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 Patient Care Teams Name Effective Dates (start - stop) Status Members No Information
== END 2024-10-17 14:07 | disposition home or self-care (01) ==
PROVIDERS: PCP Internal Medicine; Visit Provider Nurse Practitioner Family
DX: I25.110 Atherosclerotic heart disease of native coronary artery with unstable angina pectoris (principal); Z95.5 Presence of coronary angioplasty implant and graft; Z98.890 Other specified postprocedural states
CPT/HCPCS: 99214

== ENCOUNTER → 2024-10-17 13:19 | Outpatient (BNVA) | payer BC, SELFPAY | PROVIDERS: PCP Internal Medicine; Visit Provider Nurse Practitioner Family ==

== ENCOUNTER 2024-11-19 07:00 | Outpatient (RCR) | payer BC, SELFPAY | END 2024-12-03 06:16 | disposition home or self-care (01) | LOC: HO.CR 07:00 | PROVIDERS: PCP Internal Medicine; Visit Provider Internal Medicine Cardiovascular Disease | DX: Z98.890 Other specified postprocedural states (principal); Z55.8 Other problems related to education and literacy; Z98.61 Coronary angioplasty status | CPT/HCPCS: 93798 ==

== ENCOUNTER 2025-02-19 14:41 | Outpatient (AMB) | payer BC, SELFPAY ==
[2025-02-19 14:42] VITALS: BP 120/76; PULSE 58; BMI 27.2
--- NOTE | 2025-02-19 14:42 | MHC.OFFVIS ---
Vital Signs 02/19/25 14:42 Height 5 ft 10 in Weight 189 lb 9.561 oz BMI 27.2 BP 120/76 Blood Pressure Location Lt brachial Position Sitting Pulse 58 Intake Visit Reasons: 3-4m follow up Intake Note: Follow-up feelling good Syrup Blender Required: No Allergies No Known Allergies (No Known Allergies*) Allergy (Verified 10/20/21 11:15) Medication List - Last Reconciled 02/19/25 by Nolberto Odom MD aspirin (Ecotrin Low Strength) 81 mg PO DAILY atorvastatin (Lipitor) 40 mg PO DAILY metoprolol succinate ER (Toprol XL) 25 mg PO DAILY ticagrelor (Brilinta) 90 mg PO BID 90 days HPI Comments Details: Arnoldo comes for follow-up. He said he has been doing very well since his stenting of the LAD. He denies any exertional burning discomfort or any kind of exertional chest pain. Taking all his medications. No recent lipid panel. Currently on dual antiplatelet therapy. No bleeding issues or neurologic events. Overall feels well. [facility] Medical History Crescendo angina Surgical History S/P cardiac cath H/O cardiac catheterization Family History Father CVA (cerebral vascular accident) CAD (coronary artery disease) Mother CAD (coronary artery disease) Social History Alcohol intake: current Alcohol intake frequency: holidays/special occasions only Patient Tobacco Use Status: Never used Tobacco Review of Systems Const Denies chills, Denies fatigue, Denies fever(s), Denies frequent falls, Denies weakness, Denies weight gain and Denies weight loss ENT Denies dizziness Card Denies chest pain, Denies leg edema, Denies lightheadedness, Denies palpitations, Denies dyspnea, Denies dyspnea on exertion, Denies orthopnea and Denies other (loss of consciousness) Resp Denies cough, Denies dyspnea and Denies dyspnea on exertion GI Denies hematochezia and Denies change in stool character Musc Denies abnormal gait, Denies muscle weakness, Denies numbness, Denies radiating pain into limb and Denies tingling Neuro Denies abnormal gait, Denies dizziness, Denies frequent falls, Denies numbness, Denies tingling and Denies weakness Endo Denies fatigue and Denies palpitations Physical Exam Vital Signs: Last Vital Signs Pulse 58 02/19/25 14:42 BP 120/76 02/19/25 14:42 BMI result Body Mass Index 27.2 Const General: cooperative, healthy appearing, comfortable and no acute distress Orientation/consciousness: patient oriented x3 Neck Neck: Yes normal visual inspection and Yes no JVD Resp Effort & Inspection: normal respiratory effort Auscultation: clear to auscultation bilaterally, no crackles, no rales, no rhonchi and no wheezes Cardio Rate: regular rate Rhythm: regular rhythm Heart sounds: S1 normal heart sound present, S2 normal heart sound present, no gallops, no murmurs and no rubs Neuro General: patient oriented x3 Extrem Other: right radial cath site well healed - palpable radial pulse, right hand assessment normal General: Yes normal to inspection, No no pedal edema and No calf tenderness Psych Appearance: grossly normal Mental Status: mental status grossly normal Speech and movement: Normal speech and movement present Assessment & Plan Assessment & Plan (1) CAD (coronary artery disease): Code(s): I25.10 - Atherosclerotic heart disease of [place] coronary artery without angina pectoris Category: Medical Plan: CAD with drug-eluting stent to 100% mid LAD lesion for crescendo angina with residual disease in his distal RCA. Currently not having any symptoms of angina at current workload. We discussed about management of coronary artery disease in details. Also discussed about management of drug-eluting stents. Will continue uninterrupted dual antiplatelet therapy for a year and in his year's time if he has no major bleeding issues and given his age and disease would probably pursue salvage determiner dual antiplatelet therapy and a low-dose of Brilinta. Aggressive lipid modification was discussed with him. Target goal LDL less than 60 mg/dL. Continue high-intensity statin therapy. Pathophysiology of atherosclerosis was discussed. Continue metoprolol therapy for now. Advised to call me with any new symptoms. He understands and agrees. Follow up in the clinic in 9 months time after an echocardiogram. Thank you for allowing me to partake in his care Orders: Orders Lipid Panel Today I25.10 - Atherosclerotic heart disease of [place] coronary artery without angina pectoris CRP High Sensitivity Today E78.5 - Hyperlipidemia, unspecified, I25.10 - Atherosclerotic heart disease of [place] coronary artery without angina pectoris Coding Level of Care Code Est Pt Level 4 (24884) Complex EM visit Add On G2211 Diagnoses CAD (coronary artery disease) I25.10
--- OUTSIDE RECORDS SUMMARY | 2025-02-19 14:43 | XMS_ITS | Patient Health Record ---
Author Organization [facility] Address [address] [place] [address] Care Team Providers Care Manager Games Name Role Phone Cody Pena MD Primary Care Provider Madhav Marin Jr Unavailable Reason For Referral No Information Social History Tobacco Use: Social History Observation Description Date Details (start date - stop date) Never Smoker NA - NA Tobacco Use/Smoking Question Answer Notes Patient is a nonsmoker Alcohol Screen Question Answer Notes Did you have a drink contain ing alcohol in the past year? Yes Points 4 Interpretation Positive How often did you have a dri nk containing alcohol in the past year? 2 to 3 times a week (3 points) How many drinks did you have on a typical day when you were drinking in the past year? 3 or 4 drinks (1 point) Section Notes: No tobacco use, and approxim ately 10 alcoholic drinks per week. 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
== END 2025-02-19 15:05 | disposition home or self-care (01) ==
LOC: HO.HCS 14:41
PROVIDERS: PCP Internal Medicine; Visit Provider Internal Medicine Cardiovascular Disease
DX: I25.10 Atherosclerotic heart disease of native coronary artery without angina pectoris (principal)
CPT/HCPCS: 99214